=== PATIENT | female | born 1995 | race Caucasian/White ===

== ENCOUNTER 2024-09-06 15:53 | Outpatient (CLI) | payer SELFPAY ==
--- NOTE | 2024-09-06 09:46 | LES_PTH ---
PATIENT: MAHENDRA CASILLAS LOC: [facility] U#:[id number] AGE/SX: 29/F ROOM: RE09/06/[address]: Dr. Maverick Barr MD : 1995 BED: DIS: 09/06/2024 SPEC #: [id number] RECD: 09/06/24 15:40 STATUS: LUCRECIA MEÑO #: [id number] LOYDA: 09/06/24 09:[address]: Maverick Barr DEPT: SURGICAL PATHOLOGY RECD BY: Joshua Rodriguez Tissues: A - CYST B - Skin of lip, NOS C - Mandible, NOS Procedures: Surgery Specimen Level III Surgery Specimen Level IV HEADER OPERATION: Excision right earlobe cyst, right upper lip, left mandibular border PRE-OP DIAGNOSIS: Right earlobe cyst, right upper lip, left mandibular border TISSUE SUBMITTED: A- Right earlobe cyst, B- Right upper lip lesion, C- Left mandibular border lesion MICROSCOPIC DIAGNOSIS A. Earlobe, right, cyst (#1), excision: * Ruptured and inflamed epidermal inclusion cyst. B. Upper lip, right, lesion (#2), excision: * Intradermal melanocytic nevus, benign. C. Mandibular border, left, lesion (#3), excision: * Mildly dilated follicle with hyperkeratotic debris, consistent with keratosis pilaris. MICROSCOPIC DESCRIPTION Slides are reviewed. GROSS DESCRIPTION Received in 3 formalin containers labeled with the patient's name and date of . Designated as: A. #1 right earlobe cyst are 2 irregular rubbery tissue fragments surfaced by gonzalez skin, devoid of orientation, collectively measuring 1.2 x 1.0 x 0.7 cm. Sectioning reveals gonzalez, rubbery to fibrotic cut surfaces and gonzalez-white smooth cyst contents. Litigation Coordinator sections of both fragments are submitted in 1 cassette. B. #2 right upper lip lesion is a 0.4 x 0.3 cm gonzalez and granular wedge-shaped portion of apparent skin, excised to a maximum depth of 0.3 cm. The resection margin is inked black and the specimen is bisected (on the long axis). Entirely submitted in 1 cassette. C. #3 left mandibular border lesion is a 0.5 x 0.3 cm wedge-shaped portion of skin excised to a maximum depth of 0.2 cm. There is a 0.2 x 0.1 cm erythematous lesion centrally on the epidermal surface, 0.1 cm from the peripheral edge. The resection margin is inked green, the specimen is bisected and entirely submitted in 1 cassette. SC 09/07/2024 CPT:54372,23256q4
--- OUTSIDE RECORDS SUMMARY | 2024-09-06 17:52 | XMS RPT_ITS | CCD ---
Author Organization [facility] CliniSyut Care Team Providers Care Pen Tender Name Role Phone Meniru, Nicolas Unavailable Unavailable Meniru, Nicolas Unavailable Unavailable Meniru, [place] Unavailable Unavailable Meniru, [place] Unavailable Unavailable PEPE THOMAS Attending Unavailable PEPE THOMAS Primary Care Unavailable PEPE THOMAS Admitting Unavailable Preston BASS, Melinda Duckworth Primary Care Provider MELINDA JOHNSTON Primary Care Unavailable LEANN COOL Attending Unavailable Preston BASS, Melinda Duckworth Primary Care Provider Maverick Barr Attending Unavailable Dr. Maverick Barr MD Attending Provider Medications Current Medications Medication Drug Class(es) Dates Sig (Normalized) Sig (Original) cephalexin 500 mg oral capsule (2 sources) Cephalosporin Antibacterial Start: 04-13-2024 End: 04-18-2024 take 1 capsule by mouth four times daily cephALEXin (KEFLEX) 500 mg capsule Indications: Sebaceous cyst Take 1 capsule by mouth four times daily for 5 days. 20 capsule 04/13/2024 04/18/2024 Active Start: 07-09-2023 End: 07-16-2023 take 1 capsule by mouth three times daily cephALEXin (KEFLEX) 500 mg capsule Indications: Cutaneous cyst Take 1 capsule by mouth three times a day for 7 days. 21 capsule 0 07/09/2023 07/16/2023 Active Comment on above: Take 1 capsule by [facility] three times a day for 7 days. doxycycline hyclate 100 mg oral capsule (1 source) Tetracycline-clas s Drug Start: 09-06-2024 take 1 capsule by mouth twice daily Doxycycline Hyclate 100 mg capsule Active 100 mg PO TWICE A DAY 14 7 September 06, 2024 12:00am September 12, 2024 12:00am Bellamy (Nk) (1 source) Start: 07-19-2024 Bellamy (Nk) Active July 19, 2024 12:00am predniSONE 20 mg oral tablet (1 source) Start: 07-09-2023 End: 07-14-2023 take 1 tablet by mouth twice daily predniSONE (DELTASONE) 20 mg tablet Indications: Contact dermatitis, unspecified contact dermatitis type, unspecified trigger Take 1 tablet by mouth two times a day for 5 days. 10 tablet 0 07/09/2023 07/14/2023 Active Comment on above: Take 1 tablet by aren two times a day for 5 days. Completed/Discontinued Medications Medication Drug Class(es) Dates Sig (Normalized) Sig (Original) bacitracin 0.5 unt/mg topical ointment (1 source) Start: 07-09-2023 End: 07-09-2023 bacitracin 500 unit/gram 1 application topical ointment Start: 07-09-2023 End: 07-09-2023 bacitracin 500 unit/gram 1 a pplication topical ointment 10 ml lidocaine hydrochloride 10 mg/ml injection (1 source) Antiarrhythmic, Amide Local Anesthetic Start: 07-09-2023 End: 07-09-2023 lidocaine (PF) 10 mg/mL (1 %) 5 mg injection (XYLOCAINE) Start: 07-09-2023 End: 07-09-2023 lidocaine (PF) 10 mg/mL (1 % ) 5 mg injection (XYLOCAINE) Problems Active Problems Problem Classification Problem Date Documented Da te Episodic/Chronic Allergic reactions (2 sources) Contact dermatitis; Translations: [Unspecified contact dermatitis, unspecified cause] Onset: 07-09-2023 07-09-2023 Episodic Neoplasms of unspecified nature or uncertain behavior (4 sources) Neoplasm of uncertain behavior of skin; Translations: [Neoplasm of uncertain behavior of skin of face] Onset: 08-24-2024 07-19-2024 Episodic Comment on above: Right upper lip and left mandibular angle Other skin disorders (1 source) Cyst of skin; Translations: [Follicular cyst of the skin and subcutaneous tissue, unspecified] 07-09-2023 Episodic Other skin disorders (1 source) Follicular cyst of the skin and subcutaneous tissue, unspecified; Translations: [Cutaneous cyst] Onset: 07-09-2023 Episodic Other skin disorders (1 source) Sebaceous cyst of skin; Translations: [Sebaceous cyst] 04-13-2024 Episodic Other skin disorders (1 source) Epidermal cyst; Translations: [Epidermal cyst] Onset: 08-24-2024 Episodic Other skin disorders (3 sources) Ear lesion; Translations: [Epidermal cyst] 07-19-2024 Episodic Comment on above: Right earlobe Past or Other Problems Problem Classification Problem Date Documented Da te Episodic/Chronic Unclassified (1 source) Unknown / UNK(Unknown) Onset: 10-04-2016 Unclassified (1 source) INFERTILITY Onset: 10-04-2016 Results Test Name Value Interpretation Reference Range Facil ity Plastic Surgery Visit Report on 07-19-2024 Plastic Surgery Visit Report [facility] Plastic Reconstructive Surgery [address] [place] [address] OFFICE VISIT Date of Service: 07/19/24 MR#: [id number] Acct: [id number] Name: MAHENDRA SHARPE Rep #: [id number] : 1995 Provider: Dr. Maverick Barr MD Age/Sex: 29/F Location: [facility] Status: Signed Intake Vital Signs 3 07/19/24 09:21 Height 4 ft 11 in Weight: 190 lb BMI 38.3 BP 122/84 H Blood Pressure Location Rt brachial Position Sitting Respiration 18 Pulse 65 Pulse Source Monitor Temp 97 F L Pulse Oximetry (%) 97 Oxygen Delivery Method room air Intake Visit Reasons: SKIN CHECK Chief Complaint: lump in earlobe Is patient in pain?: No Allergies No Known Allergies Allergy (Unverified 07/19/24 09:20) Medications 3 ???Medication ???Instructions ???Recorded ???Confirmed ???Type NK 07/19/24 07/19/24 History Nurse's Note: pt here for lump in right earlobe as well as concerns of moles and skin tags HPI SKIN CHECK Details: Mahendra Sharpe is a delightful 29-year-old female who is otherwise healthy with no significant past medical history (not a smoker no diabetes) who presents for evaluation of 3 different problems. The first problem is a right earlobe cyst present for approximately 2 years which started to drain and became inflamed about a month ago requiring short course of oral antibiotics from an urgent care. The cyst is intermittently painful and drains behind the ear. Her other issue is to changing melanocytic lesions on the face, 1 on the right upper lip, and 1 on the left mandibular angle. She reports that they have been changing in color and size recently. No personal or family history of bleeding or clotting problems ROS General General: Yes good health; No fatigue, fever(s) or weight loss HENMT HENMT: No rhinitis, sore throat/mouth sore, nasal congestion, contacts or glaucoma Endo Endocrine: No thyroid disease, polydipsia, heat intolerance, cold intolerance, hepatitis or excessive urine Skin Skin: Yes changing moles; No Bleeding, bruising or suspicious lesion Musc Musculoskeletal: No joint pain, joint stiffness, muscle weakness, back pain, osteoarthritis or Muscle aches/ myalgia Neuro Neurological: No headache(s), No lightheadedness and No numbness Cardio Cardiovascular: No chest pain, pacemaker, fatigue or shortness of breat with exertion Psych Psychiatric: No depression, claustrophobia or anxiety Resp Respiratory: No spitting up, shortness of breath, sleep apnea, asthma, emphysema, TB, Cough or Smoker Gastro Gastrointestinal: No diarrhea, constipation, blood in stool, nausea, vomiting or abdominal bloating Exam Details Right ear lobe with 2 x 2 cm cyst with posterior sinus through the skin. Appears to have white/cystic material within the cyst wall. No induration or surrounding signs of infection Small melanocytic nevus with varying pigmentation and slightly irregular borders on the right upper keratinized lip. Small melanocytic nevus with varying pigmentation and slightly irregular borders in the left mandibular angle. Coding Level of Care Code Off vis,new,level 3 Diagnoses Epidermal cyst of ear L72.0 Neoplasm of uncertain behavior of skin of face D48.5 Assessment and Plan (No Qualifiers) Assessment and Plan (1) Epidermal cyst of ear: Status: Acute Comment: Right earlobe Plan: I talked to the patient about excision of the cyst including the cyst wall. Posterior earlobe incision. I talked to her about the risks, benefits, and alternatives to excision. We talked about earlobe distortion and recurrence of the mass. We talked about infection risk, as well as bleeding risk and scarring risk. She would like to proceed. (2) Neoplasm of uncertain behavior of skin of face: Status: Acute Comment: Right upper lip and left mandibular angle Plan: Warrants biopsy given history. Both lesions will be excised and closed/sent to pathology. I talked her about the risks of scarring, as well as sunscreen and sun protection and silicone scar tape. She understands that she is going to have scars after this, and there is a risk of hypertrophic scar keloiding or unacceptable scar requiring revision or treatments. She also understands the risks of surgery, including bleeding, infection, damage to surrounding structures, and recurrence of the lesion. Plan Plan for excision of these lesions under local in the general surgery office procedure room Patient happy with the plan 07/19/24 0950 Date Maverick Garduno Signature: Date (if applicable) CC: Normal [facility] 07-09-2023 [facility] Office Visit (UCUPNO ) MAHENDRA SHARPE ([id number]) 1995 F Date Time Provider Department 07/09/23 3:40 PM [place]ANN COOL [facility] your visit today, we recorded the following information about you: Temperature Pulse Respiration Blood pressure 98 degrees 64/minute 18/minute 112/76 Weight Last Period 83.9 kg 06/18/23 Leann Cool, [employer] 07/09/2023 3:47 PM Signed July 09, 2023 Subjective Chief Complaint: Derm Problem (Patient stated that red raised bump behind right earlobe area x 1 week. Lump just got more painful and grew in size in the past few days. /Very warm to the touch. /OTC: Benadryl /Red raised bumps on bilateral legs x 1 weeks. ) HPI: Mahendra Sharpe is a 28 year old female who presents today for raised bump to the back of right earlobe. Patient states that she noticed a lump to the back of her ear lobe for approximately 1 year. States over the course of the past week it has increased in size and is painful. Patient is unsure if it is reddened. Denies any trauma. Has never had her ears pierced. Denies any fever. States the area feels warm to the touch. Patient also states that she has itchy red raised bumps/rash to bilateral legs. States that the rash on her legs seems to be drying up. History reviewed. No pertinent past medical history. History reviewed. No pertinent surgical history. FAMILY HISTORY Problem Relation Age of Onset No Known Problems Mother No Known Problems Father Social History Tobacco Use Smoking status: Never Smokeless tobacco: Never Vaping Use Vaping Use: Never used Substance Use Topics Alcohol use: Yes Comment: rare Drug use: Never ALLERGIES No Known Allergies There is no immunization history on file for this patient. Current Medications: No prescriptions on file. Review of Systems Constitutional: Negative for chills, fever and malaise/fatigue. HENT: Positive for ear pain (earlobe). Negative for ear discharge, hearing loss, sinus pain and sore throat. Lump right earlobe Eyes: Negative for discharge and redness. Gastrointestinal: Negative for diarrhea and vomiting. Skin: Positive for rash. Objective BP 112/76 Pulse 64 Temp 98 Resp 18 Wt 185 lb (83.9kg) SpO2 100% LMP 06/18/2023 Physical Exam Vitals reviewed. Constitutional: General: She is not in acute distress. Appearance: Normal appearance. She is not ill-appearing, toxic-appearing or diaphoretic. HENT: Head: Normocephalic and atraumatic. Ears: Skin: General: Skin is warm and dry. Capillary Refill: Capillary refill takes less than 2 seconds. Neurological: Mental Status: She is alert and oriented to person, place, and time. Psychiatric: Mood and Affect: Mood normal. Behavior: Behavior normal. Thought Content: Thought content normal. Judgment: Judgment normal. UNIVERSAL PROTOCOL / SAFETY CHECKLIST Procedure to be Performed: Incision and Drainage right earlobe Sign In: A Moment of CARE was completed. Personnel directly involved with the procedure wore the appropriate PPE (Personal Protective Equipment). No special equipment needed. Patient/Surrogate Stated/Verified: PATIENT VERIFIED(optional for EMERGENT procedures): Patient name, Date of , Relevant allergies, and The intended procedure Time Out Communication: Intended patient and procedure match the source documents. Consent documented and matches the intended procedure. Relevant labs, photos, and/or imaging studies have been reviewed. Correct side/site marked and visible. Medications required for procedure verified. No fire risk assessment and interventions applicable. No implant(s) inserted. Sign Out: SIGN OUT (optional for EMERGENT procedures): No specimen collected. All instruments, equipment, possible retained foreign bodies accounted for. Post-procedure follow-up management communicated and Plan of Care Visit completed when applicable. Patient prepped and draped in sterile fashion. Cleansed patient's cyst with Hibiclens and sterile water. Patted dry with gauze. Injected half a cc of lidocaine 1% to area of concern. Upon removing needle scant amount of of white drainage expelled. Utilized #11 scalpel and made approximately 2 mm horizontal incision. Small amount of thick white sebaceous cyst consistency removed. Cleansed site again with Hibiclens and sterile water. Applied bacitracin and Band-Aid. Patient tolerated well. Patient maintained neuro vascular status pre and post incision and drainage. ASSESSMENT/PLAN: 1. Cutaneous cyst - ICD9: 706.2, ICD10: L72.9 (primary diagnosis) -Your primary care provider has a walk-in clinic Tuesday-Tuesday 8-4 for acute illnesses -Clean site twice per day with soap and water -Apply Band-aid to site for the next 24/48 hours -Watch for signs or symptoms of infection - call if any occur -Fever -Chills -Wound is re (more content not included)... [facility] CNCOon 10-18-2022 CNCO Letter Text [facility] CNPTracy 06-14-2022 [facility] Telephone (UP) MAHENDRA SHARPE ([id number]) 1995 F Date Time Provider Department 06/14/22 MELINDA JOHNSTON FMUPCN During your visit today, we recorded the following information about you: Sophia Mariooya 06/14/2022 12:53 PM Signed Patient's called and said patient has had severe left foot pain for couple of days and would like to know if you can work her in this week. Please advise. Thank you. Melinda Johnston MD 06/14/2022 1:52 PM Signed Can she use our walk in clinic? Sophia Tylor 06/14/2022 3:10 PM Signed Called patient's back and advised she can use walk in clinic. Allergies As of Date: 06/14/2022 (No Known Allergies) Date Reviewed: 01/08/2021 Reviewed by: Melinda Johnston MD - Fully Assessed Reason for Visit: Patient Question [3412] Cmt: Left foot pain Problem List As Of Date: 06/14/2022 (None) Encounter Status:Closed by SOPHIA SNIDER on 06/14/22 Normal [facility] OPERATIVE PROCEDURESon 01-31 OPERATIVE PROCEDURES [facility] OPERATIVE REPORT NAME ACCOUNT SEX AGE ADMIT DISCHARGE PT MED. RECORD# NUMBER DATE TYPE MAHENDRA SHARPE [id number] 01/30/21 01/30/21 2 [id number] ROOM: [facility] DATE OF : 1995 DICTATING PHYSICIAN: Pepe Thomas DATE OF SURGERY: January 30, 2021 SURGEON: Pepe Thomas MD JIG BORING MACHINE SET UP OPERATOR: ANESTHESIOLOGIST: Cristofer Crump MD ANESTHETIC: PREOPERATIVE DIAGNOSIS: POSTOPERATIVE DIAGNOSIS: Gastroesophageal reflux disease, cough, eructation, hiatal hernia, and gastritis. OPERATION PERFORMED: EGD. COMPLICATIONS: ESTIMATED BLOOD LOSS: None. SPECIMEN: None. DISPOSITION: Stable, to recovery. INDICATIONS: Mahendra Sharpe is a 25-year-old lady who has had some symptoms of GERD as well as a cough and increased eructation. She was concerned about possible malignancy. DESCRIPTION OF OPERATION: After informed consent, she was brought to endoscopy. The patient was placed on a padded gurney in the left lateral decubitus position with adequate padding of pressure points and time-out verification done. She was given sedation per Anesthesia. A bite block was placed, and the oropharynx was lightly anesthetized with 2% viscous lidocaine. The Olympus [id number]-[id number] flexible endoscope was passed through the bite block and oropharynx into the esophagus and carefully advanced, protecting the surrounding mucosa. The scope was advanced through the proximal esophagus, which was unremarkable. In the distal esophagus, she Page 1 of 2 MAHENDRA SHARPE Operative Report MAHENDRA SHARPE : 1995 has a small hiatal hernia and mild erythema but no ulceration. The scope was passed beyond the GE junction, retroflexed, and the fundus and GE junction viewed from below. The scope was then straightened out and advanced into the distal gastric body, down into the second portion of the duodenum and then withdrawn with circumferential visualization, irrigation and suctioning in a [id number] movement. The bulb, pylorus and antrum were carefully viewed. The rest of the gastric body was viewed. Fluid and mucus were irrigated and suctioned. The scope was then withdrawn with decompression. There was no mass, no polypoid structure, no stricture, and no angiodysplasia. She does have some scattered erythema consistent with gastritis, and she also has a small hiatal hernia. There was no mass, no exposed vessel, and no angiodysplasia. The patient tolerated the procedure well. The scope was withdrawn and then the case was discussed with the patient and spouse when she was more awake in child care sitter. Dictated By: Pepe Thomas MD 01/30/21 09:45 JOB #: [id number] Transcribed By: shaheed 01/30/21 14:40 Electronically signed by: E-Sign Dr. Pepe Thomas MD 01/31/21 10:19 Page 2 of 2 MAHENDRA SHARPE Operative Report Normal [facility] URINEon 01-30-2021 Beta HCG ( test) Ql (U) Negative Normal NEGATIVE [facility] Comment on above: Performed By: #### 2 [id number] #### [place] [address] EXTERNAL QC DONE? YES Normal [facility] Comment on above: Performed By: #### 2 [id number] #### [place] [id number] INTERNAL QC PASS Normal [facility] Comment on above: Performed By: #### 2 [id number] #### [facility],[address] [place] [address] H&Hon 04-19-2019 Hematocrit (Bld) [Volume fraction] 37.6 % Normal 36.0-48.0 [facility] Comment on above: Performed By: #### L 300.0500 #### [facility] [address] [place] [address] Hemoglobin (Bld) [Mass/Vol] 12.5 g/dL Normal 12.0-16.0 [facility] Comment on above: Performed By: #### L 300.0500 #### [facility] [address] [place] [address] HISTORY AND PHYSICALon 04-19 [place] [address] HEALTH INFORMATION MANAGEMENT HISTORY AND PHYSICAL Patient: MAHENDRA SHARPE JONATHAN OSULLIVAN M.D. [id number] 24 F Status: DIS IN 3368- Date of Admission: 04/18/19 HISTORY OF PRESENT ILLNESS: Mahendra is a 24-year-old patient of mine, 2, para 1. She is currently at 39 weeks and 5 days, presented to Labor and Delivery with complaint of contraction and question of rupture of membrane. AmniSure was positive and she was initially regina on presentation. However, her contraction has started to space out. She is about 2 to 3 cm and has stayed on that, was elected then to go ahead and augment her. She has ruptured with contractions spacing out at this point. Her past history was significant for one vaginal delivery. Baby was under 7 pounds then and other than that nothing further. REVIEW OF SYSTEMS: Other than the contraction and leakage of fluid, she denied any other complaint. No chest pain. No shortness of breath. No dysuria and no complaint of bleeding. ALLERGIES: She denied any known allergies. FAMILY HISTORY: Significant for family member in general with multiple gestations in the family. Other than that nothing further. SOCIAL HISTORY: Socially, no history of cigarette, alcohol, or recreational drug use and past history includes the fact that she has been before with one vaginal delivery and she has had a D&C in the past other than that nothing further. PHYSICAL EXAMINATION: GENERAL: On evaluation, she is a well-nourished, well-developed patient. This patient weighs about 191 pounds with BMI of 28.5. She is short in stature. HEENT: Normal. NECK: Supple, nontender. CHEST: Clear to auscultation. HEART: Regular rate and rhythm. ABDOMEN: By clinically approach, this baby is around between 7 and 8 pounds. Other than that no other abnormality. No CVA tenderness. Cervical check is about 1 to 2 with positive AmniSure. Clinical pelvimetry, she seems to have adequate pelvic for vaginal delivery and had delivered a baby in the past that was just under 7 pounds, but without any problem. External genitalia, urethra and vagina was normal. NEUROLOGIC: Cranial nerves 2 to 12 appear grossly intact and again this patient we felt that is about 2 cm, close to 0 station, and about 60 to 70% effaced, and the cervix being soft in consistency, and anterior in position. Other than that nothing further. IMPRESSION: At this point is term , in early labor, grossly ruptured. Will augment with Pitocin as labor contraction is beginning to space out at this point. Report#: Dict ID [id number] / Int ID [id number] 04/20/19 1213 JONATHAN CARSON M.D. cc: JONATHAN CARSON M.D. << Signature on File>> Reported By: JONATHAN CARSON M.D. Signed By: JONATHAN CARSON M.D. Tests performed at: [address] [address] Normal [facility] AMNISUREon 04-18-2019 AMNISURE Positive Normal NEGATIVE [facility] Comment on above: Performed By: #### B 500.0845 #### [facility] [address] [place] [address] CBCon 04-18-2019 Basophils (Bld) [#/Vol] 0.00 x10(3) Normal 0.00-0.10 [facility] Comment on above: Performed By: #### L 300.0500 #### [facility] [address] [place] [address] Basophils/100 WBC (Bld) 0.6 % Normal 0.0-1.0 [facility] Comment on above: Performed By: #### L 300.0500 #### [facility] [address] [place] [address] Eosinophils (Bld) [#/Vol] 0.10 x10(3) Normal 0.00-0.54 [facility] Comment on above: Performed By: #### L 300.0500 #### [facility] [address] [place] [address] Eosinophils/100 WBC (Bld) 0.8 % Normal 0.5-4.9 [facility] Comment on above: Performed By: #### L 300.0500 #### [facility] [address] [place] [address] Erythrocyte distribution width (RBC) [Ratio] 13.4 % Normal 12.5-15.7 [facility] Comment on above: Performed By: #### L 300.0500 #### [facility] [address] [place] [address] Hematocrit (Bld) [Volume fraction] 37.4 % Normal 36.0-48.0 [facility] Comment on above: Performed By: #### L 300.0500 #### [facility] [address] [place] [address] Hemoglobin (Bld) [Mass/Vol] 12.4 g/dL Normal 12.0-16.0 [facility] Comment on above: Performed By: #### L 300.0500 #### [facility] [address] [place] [address] Lymphocytes (Bld) [#/Vol] 1.50 x10(3) Normal 1.00-3.50 [facility] Comment on above: Performed By: #### L 300.0500 #### [facility] [address] [place] [address] Lymphocytes/100 WBC (Bld) 20.5 % Normal 16.0-48.0 [facility] Comment on above: Performed By: #### L 300.0500 #### [facility] [address] [place] [address] MCH (RBC) [Entitic mass] 29.8 pg Normal 28.5-32.9 [facility] Comment on above: Performed By: #### L 300.0500 #### [facility] [address] [place] [address] MCHC (RBC) [Mass/Vol] 33.3 g/dL Normal 33.0-36.0 [facility] Comment on above: Performed By: #### L 300.0500 #### [facility] [address] [place] [address] MCV (RBC) [Entitic vol] 89.4 fL Normal 80.0-99.0 [facility] Comment on above: Performed By: #### L 300.0500 #### [facility] [address] [place] [address] Monocytes (Bld) [#/Vol] 0.60 x10(3) Normal 0.30-0.80 [facility] Comment on above: Performed By: #### L 300.0500 #### ML [facility] [address] [place] [address] 66283 Monocytes/100 WBC (Bld) 8.3 % Normal 4.3-11.2 [facility] Comment on above: Performed By: #### L 300.0500 #### ML [facility] [address] [place] [address] 50052 Neutrophils (Bld) [#/Vol] 5.00 x10(3) Normal 1.40-6.50 [facility] Comment on above: Performed By: #### L 300.0500 #### [facility] [address] [place] [address] 92478 Neutrophils/100 WBC (Bld) 69.8 % Normal 45.0-73.0 [facility] Comment on above: Performed By: #### L 300.0500 #### [facility] [address] [place] [address] 69188 Platelet mean volume (Bld) [Entitic vol] 8.4 fL Normal 7.5-9.5 [facility] Comment on above: Performed By: #### L 300.0500 #### ML - LABORATORY [address] [place] [address] 93641 Platelets (Bld) [#/Vol] 186 X10(3) Normal 150-450 [facility] Comment on above: Performed By: #### L 300.0500 #### ML - LAB[facility]ATORY [address] [place] [address] 11668 RBC (Bld) [#/Vol] 4.18 x10(6) Normal 3.30-5.00 [facility] Comment on above: Performed By: #### L 300.0500 #### ML - [facility]AT[facility] [address] [place] [address] 31265 WBC (Bld) [#/Vol] 7.1 x10(3) Normal 4.5-10.0 [facility] Comment on above: Performed By: #### L 300.0500 #### ML - [facility]AT[facility] [address] [place] [address] 39312 OPERATIVE REPORTon 0 [place] [address] HEALTH INFORMATION MANAGEMENT OPERATIVE REPORT Patient: MAHENDRA SHARPE JONATHAN CARSON M.D. [id number] [age] F Status: DIS IN 3368- DATE OF SURGERY: 04/18/2019 SURGEON: Jonathan Carson MD PREDELIVERY DIAGNOSIS: 39 weeks and 5 days , rupture of membrane in labor POSTOPERATIVE DIAGNOSIS: 39 weeks and 5 days , rupture of membrane in labor. PROCEDURE: Augmentation of labor with spontaneous vaginal delivery, spontaneous delivery of placenta. Baby and mom are doing well. ESTIMATED BLOOD LOSS: About 100 mL. DESCRIPTION OF PROCEDURE: Delivery was done by Dr. Carson. All this was done under epidural, although like the epidural was not working. Following delivery, she was evaluated and perineum and vaginal mucosa appeared to be intact. Report#: Dict ID [id number] / Int ID [id number] cc: Jonathan Carson MD 04/20/19 1213 JONATHAN CARSON M.D. cc: JONATHAN CARSON M.D. << Signature on File>> Reported By: JONATHAN CARSON M.D. Signed By: JONATHAN CARSON M.D. Tests performed at: [place] [address] [facility] TYPE AND SCREENon 04-18-2019 AB SCRN Negative [facility] Comment on above: Performed By: #### L 300.0500 #### ML - [facility]AT[facility] [address] [place] [address] 66804 BLD TYPE Positive [facility] Comment on above: Performed By: #### L 300.0500 #### ML - [facility] [address] [place] [address] 88179 URINALYSISon 04-18-2019 Bilirubin Ql (U) Negative Normal NEGATIVE [facility] Comment on above: Performed By: #### L 300.0500 #### ML - [facility] [address] [place] [address] 48416 Color (U) YELLOW Normal YELLOW [facility] Comment on above: Performed By: #### L 300.0500 #### ML - [facility] [address] [place] [address] 09691 Glucose Ql (U) Negative Normal NEGATIVE [facility] Comment on above: Performed By: #### L 300.0500 #### [facility] [address] [place] [address] 63582 Hemoglobin Ql (U) LARGE Normal NEGATIVE [facility] Comment on above: Performed By: #### L 300.0500 #### ML - [facility] [address] [place] [address] 17685 Leukocyte esterase Test strip Ql (U) Negative Normal NEGATIVE [facility] Comment on above: Performed By: #### L 300.0500 #### [facility] [address] [place] [address] 72699 Nitrite Ql (U) Negative Normal NEGATIVE [facility] Comment on above: Performed By: #### L 300.0500 #### [facility] [address] [place] [address] 84513 pH (U) 7.5 [pH] Normal 5.0-8.0 [facility] Comment on above: Performed By: #### L 300.0500 #### [facility] [address] [place] [address] 86664 Protein Ql (U) Negative Normal NEGATIVE [facility] Comment on above: Performed By: #### L 300.0500 #### [facility] [address] [place] [address] 30838 URINE APPEARANC CLEAR Normal CLEAR [facility] Comment on above: Performed By: #### L 300.0500 #### [facility] [address] [place] [address] 25193 URINE KETONE Negative Normal NEGATIVE [facility] Comment on above: Performed By: #### L 300.0500 #### [facility] [address] [place] [address] 41997 URINE SPECIFIC 1.010 Normal 1.001-1.035 [facility] Comment on above: Performed By: #### L 300.0500 #### [facility] [address] [place] [address] 67745 URINE UROBILINO 0.2 EU/DL Normal 0.2-1.0 [facility] Comment on above: Performed By: #### L 300.0500 #### ML - [facility] [address] [place] [address] 95889 US PREG >14WKS SINGLE OR FIR STon 04-10-2019 US PREG >14WKS SINGLE OR FIRST [address] [address] Name: MAHENDRA SHARPE Phys: JONATHAN CARSON M.D. : [birth year] Age: 24 Sex: F Acct: [id number] Loc: RAD US Exam Date: 04/10/19 Status: REG CLI Radiology No.: [id number] Unit Number: [id number] Exam # Type/Exam [id number] US / US PREG >14WKS SINGLE OR FIRST ULTRASOUND OB GREATER THAN 14 WEEKS COMPARISON: 11/27/2018 Indication ======== GROWTH, ANATOMY. Method ====== Transabdominal ultrasound examination. ========= Nguyen . Number of fetuses: 1. Dating ====== Date Details Gest. age ISAI External assessment 37 w 0 d 05/01/2019 U/S 04/10/2019 based upon AC, BPD, Femur, HC 38 w 0 d 04/24/2019 Assigned dating Dating performed on 04/10/2019, based on ultrasound (AC, BPD, Femur, HC) 38 w 0 d 04/24/2019 General Evaluation Cardiac activity: present. FHR 131 bpm. movements: visualized. Presentation: cephalic. Placenta: fundal. Umbilical cord: 3 vessel cord. Amniotic fluid: Amount of AF: normal amount. MVP 4.2 cm. KATHY 12.0 cm. Q1 4.2 cm, Q2 1.5 cm, Q3 2.5 cm, Q4 3.8 cm. Biometry Main Biometry: BPD 92.1 mm 57% 37w 3d Hadlock OFD 114.0 mm 68% 39w 0d Patrick HC 330.9 mm 23% 37w 5d Hadlock AC 343.6 mm 75% 38w 2d Hadlock Femur 76.1 mm 75% 38w 6d Hadlock Weight Calculation: EFW 3,436 g 68% 39w 0d Hadlock EFW (lb,oz) 7 lb 9 oz Calculated by Hadlock ([id number]-FL) Proportionality Ratios: Cephalic index 80.75 HC / AC 0.96 FL / BPD 82.61 FL / HC 22.99 FL / AC 22.14 Amniotic Fluid / FHR: AF MVP 4.2 cm KATHY 12.0 cm FHR 131 bpm Anatomy The following structures could not be adequately visualized: Head / Neck Lateral ventricles. Cerebellum. Cisterna magna. Face Nose. The following structures were visualized: Face Lips. Heart / Thorax 4-chamber view. Abdomen Cord insertion. Stomach. Kidneys. Bladder. Spine / Skelet. Cervical spine. Thoracic spine. Lumbar spine. Sacral spine. Extremities Arms. Legs. Maternal Structures Right Ovary Visualized. Size 3.4 cm x 3.8 cm x 4.6 cm. Mean 3.9 cm. Vol 30.4 ml. Left Ovary Visualized. Size 4.3 cm x 4.3 cm x 2.3 cm. Mean 3.6 cm. Vol 22.2 ml. IMPRESSION: Single live intrauterine in cephalic presentation measuring 38 weeks 0 days based on biometry measurements on today's exam. The lateral ventricles, cerebellum, cisterna magna, nose were not adequately assessed on today's exam due to gestational age. The remaining visualized structures appear normal. Electronically signed by: Mony Potter MD 04/10/2019 2:02 PM PLASTIC MOULD MAKER < > Reported By: MONY POTTER M.D. Signed In PowerScribe By: MONY POTTER M.D. << Signature on File>> Reported By: MONY POTTER M.D. Signed By: MONY POTTER M.D. Tests performed at: [place] [address] [facility] Chlamyda/GC DNAon 04-06-2019 Chlamydia trach Negative Normal Negative [facility] Comment on above: Performed By: #### L 801.6630 #### [place] [address] Neisseria Gonor Negative Normal Negative [facility] Comment on above: Result Comment: Perf ormed at: =G - [facility] [address] [id number] Litigation Manager: Bailee Coon MD, Phone: [phone] Performed By: #### L 801.6630 #### [place] [address] RPRon 04-05-2019 Reagin Ab RPR Ql (S) NON-REACTIVE Normal NonReactive [facility] Comment on above: Performed By: #### B 500.0845 #### [facility] [address] [place] [address] GRP B SCNon 04-04-2019 GRP B SCN ORGANISM 1: NO GROUP B BETA STREP ISOLATED Normal [facility] Comment on above: Performed By: #### M 150.0200 #### [facility] [address] [place] [address] 84575 CBCon 04-03-2019 Basophils (Bld) [#/Vol] 0.00 x10(3) Normal 0.00-0.10 [facility] Comment on above: Performed By: #### B 500.0845 #### ML [facility] [address] [place] [address] 67939 Basophils/100 WBC (Bld) 0.3 % Normal 0.0-1.0 [facility] Comment on above: Performed By: #### B 500.0845 #### [facility] [address] [place] [address] 35282 Eosinophils (Bld) [#/Vol] 0.10 x10(3) Normal 0.00-0.54 [facility] Comment on above: Performed By: #### B 500.0845 #### ML [facility] [address] [place] [address] 32172 Eosinophils/100 WBC (Bld) 0.8 % Normal 0.5-4.9 [facility] Comment on above: Performed By: #### B 500.0845 #### ML [facility] [address] [place] [address] 59994 Erythrocyte distribution width (RBC) [Ratio] 13.4 % Normal 12.5-15.7 [facility] Comment on above: Performed By: #### B 500.0845 #### ML [facility] [address] [place] [address] 35612 Hematocrit (Bld) [Volume fraction] 36.2 % Normal 36.0-48.0 [facility] Comment on above: Performed By: #### B 500.0845 #### [facility] [address] [place] [address] 04520 Hemoglobin (Bld) [Mass/Vol] 12.0 g/dL Normal 12.0-16.0 [facility] Comment on above: Performed By: #### B 500.0845 #### ML - [facility] [address] [place] [address] 80338 Lymphocytes (Bld) [#/Vol] 1.20 x10(3) Normal 1.00-3.50 [facility] Comment on above: Performed By: #### B 500.0845 #### ML [facility] [address] [place] [address] 20849 Lymphocytes/100 WBC (Bld) 14.4 % Low 16.0-48.0 [facility] Comment on above: Performed By: #### B 500.0845 #### ML [facility] [address] [place] [address] 32818 MCH (RBC) [Entitic mass] 29.8 pg Normal 28.5-32.9 [facility] Comment on above: Performed By: #### B 500.0845 #### [facility] [address] [place] [address] 34007 MCHC (RBC) [Mass/Vol] 33.1 g/dL Normal 33.0-36.0 [facility] Comment on above: Performed By: #### B 500.0845 #### ML [facility] [address] [place] [address] 31397 MCV (RBC) [Entitic vol] 90.0 fL Normal 80.0-99.0 [facility] Comment on above: Performed By: #### B 500.0845 #### [facility] [address] [place] [address] 31049 Monocytes (Bld) [#/Vol] 0.60 x10(3) Normal 0.30-0.80 [facility] Comment on above: Performed By: #### B 500.0845 #### ML [facility] [address] [place] [address] 29615 Monocytes/100 WBC (Bld) 7.8 % Normal 4.3-11.2 [facility] Comment on above: Performed By: #### B 500.0845 #### ML [facility] [address] [place] [address] 47133 Neutrophils (Bld) [#/Vol] 6.20 x10(3) Normal 1.40-6.50 [facility] Comment on above: Performed By: #### B 500.0845 #### [facility] [address] [place] [address] 11810 Neutrophils/100 WBC (Bld) 76.7 % High 45.0-73.0 [facility] Comment on above: Performed By: #### B 500.0845 #### ML [facility] [address] [place] [address] 06703 Platelet mean volume (Bld) [Entitic vol] 8.5 fL Normal 7.5-9.5 [facility] Comment on above: Performed By: #### B 500.0845 #### ML [facility] [address] [place] [address] 00838 Platelets (Bld) [#/Vol] 192 X10(3) Normal 150-450 [facility] Comment on above: Performed By: #### B 500.0845 #### ML [facility] [address] [place] [address] 83220 RBC (Bld) [#/Vol] 4.02 x10(6) Normal 3.30-5.00 [facility] Comment on above: Performed By: #### B 500.0845 #### ML [facility] [address] [place] [address] 04765 WBC (Bld) [#/Vol] 8.1 x10(3) Normal 4.5-10.0 [facility] Comment on above: Performed By: #### B 500.0845 #### ML [facility] [address] [place] [address] 81236 URINALYSISon 03-20-2019 Bilirubin Ql (U) Negative Normal NEGATIVE [facility] Comment on above: Performed By: #### B 500.0845 #### ML - [facility] [address] [place] [address] 15230 Color (U) YELLOW Normal YELLOW [facility] Comment on above: Performed By: #### B 500.0845 #### ML [facility] [address] [place] [address] 47081 Glucose Ql (U) Negative Normal NEGATIVE [facility] Comment on above: Performed By: #### B 500.0845 #### ML - [facility] [address] [place] [address] 89158 Hemoglobin Ql (U) Negative Normal NEGATIVE [facility] Comment on above: Performed By: #### B 500.0845 #### ML - [facility] [address] [place] [address] 25074 Leukocyte esterase Test strip Ql (U) Negative Normal NEGATIVE [facility] Comment on above: Performed By: #### B 500.0845 #### ML - [facility] [address] [place] [address] 52401 Nitrite Ql (U) Negative Normal NEGATIVE [facility] Comment on above: Performed By: #### B 500.0845 #### [facility] [address] [place] [address] 12529 pH (U) 7.0 [pH] Normal 5.0-8.0 [facility] Comment on above: Performed By: #### B 500.0845 #### [facility] [address] [place] [address] 52813 Protein Ql (U) Negative Normal NEGATIVE [facility] Comment on above: Performed By: #### B 500.0845 #### [facility] [address] [place] [address] 58600 URINE APPEARANC CLEAR Normal CLEAR [facility] Comment on above: Performed By: #### B 500.0845 #### [facility] [address] [place] [address] 32725 URINE KETONE 15 MG/DL Normal NEGATIVE [facility] Comment on above: Performed By: #### B 500.0845 #### ML [facility] [address] [place] [address] 78604 URINE SPECIFIC 1.010 Normal 1.001-1.035 [facility] Comment on above: Performed By: #### B 500.0845 #### [facility] [address] [place] [address] 96249 URINE UROBILINO 0.2 EU/DL Normal 0.2-1.0 [facility] Comment on above: Performed By: #### B 500.0845 #### ML [facility] [address] [place] [address] [place] [address] RPRon 03-13-2019 Reagin Ab RPR Ql (S) NON-REACTIVE Normal NonReactive [facility] Comment on above: Performed By: #### B 500.0845 #### ML - [facility] [address] [place] [address] 45540 H&Hon 03-12-2019 Hematocrit (Bld) [Volume fraction] 33.9 % Low 36.0-48.0 [facility] Comment on above: Performed By: #### B 500.0845 #### ML - [facility] [address] [place] [address] 07051 Hemoglobin (Bld) [Mass/Vol] 11.5 g/dL Low 12.0-16.0 [facility] Comment on above: Performed By: #### B 500.0845 #### ML - [facility] [address] [place] [address] 57082 1HR GLUCOSEon 01-23-2019 Glucose [Mass/Vol] 102 mg/dL Normal [facility] Comment on above: Order Comment: 1HR G LUCOSE TRINIDAD 1H GLU 1HR GLUCOSE from 1105:[id number]. Result Comment: DIAB ETES MELLITUS IS INDICATED IN NON- ADULTS WHEN THE 2HR GLUCOSE IS GREATER THAN OR EQUAL TO 200 mg/dL OR THE FASTING GLUCOSE IS GREATER THAN OR EQUAL TO 126 mg/dL. GESTATIONAL DIABETES IS INDICATED WHEN TWO OR MORE OF THE FOLLOWING GLUCOSE CONCENTRATIONS ARE MET OR EXCEEDED: FASTING GLUCOSE >=95 mg/dL 1HR GLUCOSE >=180 mg/dL 2HR GLUCOSE >=155 mg/dL 3HR GLUCOSE >=140 mg/dL Performed By: #### B 500.0845 #### ML - [facility] [address] [place] [address] 64544 ED REPORTon 01-17-2019 [place] [address] HEALTH INFORMATION MANAGEMENT EMERGENCY DEPARTMENT REPORT Patient: MAHENDRA SHARPE ANDREA C NP-C as dictated by DANYELLE CASTILLO [id number] [age] F Status: DEP ER ED Date of Service: 01/16/19 DICTATED FOR: Dr. Wilkes. CHIEF COMPLAINT: Right foot pain. HISTORY OF PRESENT ILLNESS: The patient states she was walking down a couple of steps, had her 1-year-old in the left arm and felt a pop in her right foot, causing pain. She did fall, she said on an outstretched arm, but she is not complaining of wrist pain at all. The only pain she is having is this right foot and it is at the 5th metatarsal area. She said she has had a very difficult time putting any weight on it since then. She is 26 weeks' . Denies any injury to her abdomen. Denies any other injuries at all. No head injury. No neck pain. No back pain. Denies any numbness or tingling to the foot. REVIEW OF SYSTEMS: A 10-point review of systems is negative except for listed in the HPI. PAST MEDICAL HISTORY: None. PAST SURGICAL HISTORY: None. SOCIAL HISTORY: She is . Denies drug, alcohol, or tobacco use. ALLERGIES: No known drug allergies. MEDICATIONS: Daily medicines include vitamins. PHYSICAL EXAMINATION: VITAL SIGNS: The patient's blood pressure is 114/75, temperature 98.5, pulse 83, respirations 18, SpO2 is 98% on room air. She rates her pain as 7/10 with ambulation. GENERAL: She is a pleasant 23-year-old female, in no acute distress, nontoxic appearing. HEENT: Head is atraumatic, normocephalic. NECK: Supple, nontender. SKIN: Color is pink. She is warm and dry. Cap refill less than 2 seconds including to this right foot. EXTREMITIES: There are no abrasions or open areas to the foot. She has good cap refill sensation and pulses to the foot. She does have some swelling over the lateral aspect of the foot and tenderness certainly to that 5th metatarsal area. She does not have any ankle pain with palpation. She has good flexion and extension and rotation of the ankle. No tib- fib pain. No other pain to the other extremities with palpation. LUNGS: Breath sounds are clear. Respirations are easy. CARDIAC: She has regular rate and rhythm. NEUROLOGIC: She is alert and oriented x3. EMERGENCY DEPARTMENT COURSE: We did do an x-ray of the foot, which does show a fracture through the base of the 5th metatarsal. The patient was placed in an Ortho-Glass posterior short-leg splint by myself. She had good cap refill and sensation prior to and after application of the splint. We are going to give her crutches. She is to be nonweightbearing until she follows up with either [facility] or Foot and Ankle Specialist who is Dr. Hudson Thomas that is on. She is encouraged to ice it, elevate it, take Tylenol or ibuprofen for pain, and return here for any worsening condition. Report#: Dict ID [id number] / Int ID [id number] 01/17/19 1350 MANJEET CALVERT LIFE MANAGEMENT TEACHER-C cc: MANJEET CALVERT LIFE MANAGEMENT TEACHER-C << Signature on File>> Reported By: MANJEET CALVERT Signed By: MANJEET CALVERT Tests performed at: [address] [address] Normal [facility] EMERGENCY DEPARTMENT REPORTo n 01-17-2019 EMERGENCY [place] [address] HEALTH INFORMATION MANAGEMENT EMERGENCY DEPARTMENT REPORT Patient: MAHENDRA SHARPE STAS,ELIAS Zepeda D.O. [id number] [age] F Status: DEP ER ED Date of Service: 01/16/19 CHIEF COMPLAINT: Foot pain. HISTORY OF CHIEF COMPLAINT: This is a 23-year-old female. She is about 28 weeks . She was going down steps and she slipped and fell. She landed on her right outstretched arm and kind of on her right side. She did not hit her abdomen. She denies any abdominal pain. No vaginal bleeding or cramping. She says that she did feel the baby move. The patient has no pain in her arm, but she said the reason she fell on the first place is because she stepped down. She was holding her 1-year-old in her left arm and when she stepped down she felt a pop on the lateral side of her right foot. She said that again no belly pain, did not hit her abdomen, used her arm to brace herself. She states that she is having no cramping. No vaginal bleeding. No discharge, just pain on the lateral side of her right foot. No arm pain with this. Did not hit her head. No loss of consciousness. The patient was seen by nurse practitioner. I saw and assessed her as well. PHYSICAL EXAMINATION: GENERAL: She is awake, alert, active, nontoxic in appearance. Appears to be well hydrated, well nourished. HEENT: Benign. Trachea midline. Pupils are equal and reactive. HEART: Regular rate and rhythm. LUNGS: Clear bilaterally. ABDOMEN: Soft, nontender to palpation anywhere in the abdomen. The uterus is soft. I palpated the abdomen, you could feel the baby kicking. There are no signs of any abdominal trauma anywhere. No abdominal contractions. The patient does have good heart tones. SKIN: Without rashes EXTREMITIES: Without edema or cyanosis. Negative Homans. She does have tenderness over the lateral side of her right foot over the 5th metatarsal head. No gross deformity of the foot. Not tender over the ankle. Negative machine deicer element winder the ankle. Neurovascularly intact in the legs. The patient had no pain with range of motion of the upper extremities. IMAGING: The patient's x-rays of the foot show fracture through the 5th metatarsal head. IMPRESSION: 1. Fall. 2. Fracture of 5th metatarsal head, right foot. At this time, we put posterior splint, crutches, have her nonweightbearing, have her follow up as outpatient with Orthopedics. Ortho or Podiatry will stay off the foot in the meantime , she will follow up as an outpatient. Again, there is no evidence of any abdominal trauma here, so I do not think any further abdominal studies would be warranted. She is going to be discharged in stable condition. Report#: Dict ID [id number] / Int ID [id number] 01/18/19 1502 ELIAS WILKES D.O. cc: ELIAS WILKES D.O. << Signature on File>> Reported By: ELIAS WILKES D.O. Signed By: ELIAS WILKES D.O. Tests performed at: [address] [address] Normal [facility] FOOT 3 VIEWSon 01-16-2019 FOOT [address] [address] Name: MAHENDRA SHARPE Phys: MANJEET CALVERT Brunilda LIFE MANAGEMENT TEACHER-C : [birth year] Age: 23 Sex: F Acct: [id number] Loc: ED Exam Date: 01/16/19 Status: REG ER Radiology No.: [id number] Unit Number: [id number] Exam # Type/Exam [id number] RAD / FOOT 3 VIEWS RT XR FOOT 3 VIEWS RIGHT CLINICAL STATEMENT: Pain following injury on stairs. COMPARISON: None FINDINGS: AP, oblique, and lateral views obtained. There is a comminuted fracture with intra-articular extension involving the base of the fifth metatarsal bone. Abutting soft tissue swelling is appreciated. Remaining articulations of Lisfranc's joint appears smoothly marginated. No subluxation is seen. IMPRESSION: Acute comminuted intra-articular fracture involving the base fifth metatarsal right foot. Electronically signed by: Otoniel Slade DO 01/16/2019 1:52 PM CDT < > Reported By: OTONIEL SLADE D.O. Signed In PowerScribe By: OTONIEL SLADE D.O. << Signature on File>> Reported By: OTONIEL SLADE D.O. Signed By: OTONIEL SLADE D.O. Tests performed at: [address] [address] Normal [facility] AFP TETRA PROFIon 11-29-2018 AFP Mom Value 0.95 Normal . [facility] Comment on above: Performed By: #### L 800.8249 #### [place] [address] AFP Value (EIA) 34.5 ng/mL Normal . [facility] Comment on above: Performed By: #### L 800.8249 #### [place] [address] Comments: Normal [facility] Comment on above: Result Comment: Rangel Olson, Ph.D., [facility] [employer] Superintendent References: Available Upon Request. Multiples Of Median Cutoffs Abbreviation Definitions For AFP Elevations IDD- Insulin Dep Diabetes Nguyen 2.5 Black 2.8 OSBR- Open Spina Bifida IDD 2.0 Twins 4.5 Risk DSR Cutoff 1:270 DSR- Down Syndrome Risk T18 Cutoff 1:100 T18- Trisomy 18 Down Syndrome and Trisomy 18 screening are considered Investigational For further inquiries contact [facility] at [phone]. Performed at: - [facility] [address] [place], [place] [id number] Litigation Manager: Jennifer Lopez MD, Phone: [phone] Performed By: #### L .8249 #### [place] [address] GIGI MOM VALUE 0.51 Normal . [facility] Comment on above: Performed By: #### L .8249 #### [place] [address] GIGI VALUE (EIA) 79.63 pg/mL Normal . [facility] Comment on above: Performed By: #### L .8249 #### [place] [address] DSR (By Age) 1I 1026 Normal . [facility] Comment on above: Performed By: #### L .8249 #### [place] [address] DSR (Second Tri [address] Normal . [facility] Comment on above: Performed By: #### L .8249 #### [place] [address] Gestat. Age Bas ISAI Normal . [facility] Comment on above: Result Comment: 04/21 Performed By: #### L 800.8249 #### [place] [address] Gestational Age 17.6 WEEKS Normal . [facility] Comment on above: Performed By: #### L .8249 #### [place] [address] hCG Mom 1.24 Normal . [facility] Comment on above: Performed By: #### L .8249 #### [place] [address] [place] [address] m[IU]/mL Normal . [facility] Comment on above: Performed By: #### L .8249 #### [place] [address] Insulin Dep. di No Normal . [facility] Comment on above: Performed By: #### L .8249 #### [place] [address] Interpretation Normal [facility] Comment on above: Result Comment: Inte rpretation: Screen Negative This result is screen negative for OSB, Down Syndrome and Trisomy 18. The AFP MoM and patient specific risks calculated are based on the gestational age and the clinical information provided. This test can identify up to 80% of open neural tube defects. Closed neural tube defects and some open defects may not be detected by this test. The combination of maternal age, AFP, hCG, uE3, and GIGI identifies 75-80% of Down Syndrome. The combination of maternal age, AFP, hCG and uE3 identifies 60% of Trisomy 18 pregnancies. The [employer] recommends amniocentesis be offered to women age 35 and older. Recalculations are not recommended when gestational dating by LMP and ultrasound are within 10 days. Performed By: #### L .8249 #### [place] [address] [age]ternal Age At 24.1 [age] Normal . [facility] Comment on above: Performed By: #### L .8249 #### [place] [address] Multiple Gestat No Normal . [facility] Comment on above: Performed By: #### L .8249 #### [place] [address] OSBR RISK 1IN [address] Normal . [facility] Comment on above: Performed By: #### L .8249 #### [place] [address] Race Normal . [facility] Comment on above: Performed By: #### L .8249 #### [place] [address] T18 (By Age) 1:3999 Normal . [facility] Comment on above: Performed By: #### L .8249 #### [place] [address] T18 Risk Not increased Normal . [facility] Comment on above: Performed By: #### L .8249 #### [place] [address] TEST RESULTS: Negative Normal . [facility] Comment on above: Performed By: #### L .8249 #### [place] [address] uE3 Mom 1.26 Normal . [facility] Comment on above: Performed By: #### L .8249 #### [place] [address] uE3 VALUE 1.42 ng/mL Normal . [facility] Comment on above: Performed By: #### L 800.8249 #### [place] [address] . Report Normal . [facility] Comment on above: Result Comment: [facility] Performed By: #### L 800.8249 #### [place] [address] US PREG >14WKS SINGLE OR FIR STon 11-27-2018 US PREG >14WKS SINGLE OR [facility] [address] [place], [place] [address] Name: MAHENDRA SHARPE Phys: JONATHAN CARSON M.D. : [birth year] Age: 23 Sex: F Acct: [id number] Loc: [facility] US Exam Date: 11/27/18 Status: REG CLI Radiology No.: [id number] Unit Number: [id number] Exam # Type/Exam [id number] US / US PREG >14WKS SINGLE OR FIRST COMPARISON: [none] Indication ======== anatomy survey. Method ====== Transabdominal ultrasound examination. ========= Nguyen . Number of fetuses: 1. Dating ====== Date Details Gest. age ISAI External assessment 17 w 6 d 05/01/2019 U/S 11/27/2018 based upon AC, BPD, Femur, HC 19 w 1 d 04/22/2019 Assigned dating Dating performed on 11/27/2018, based on the external assessment 17 w 6 d 05/01/2019 General Evaluation Cardiac activity: present. FHR 151 bpm. movements: visualized. Presentation: Variable. Placenta: posterior, Grade 1. Umbilical cord: 3 vessel cord. Amniotic fluid: Amount of AF: normal amount. MVP 4.3 cm. KATHY 12.3 cm. Q1 2.0 cm, Q2 4.3 cm, Q3 2.4 cm, Q4 3.5 cm. Biometry Main Biometry: BPD 43.7 mm 94% 19w 2d Hadlock OFD 55.9 mm 98% 19w 5d Patrick HC 160.2 mm 86% 18w 6d Hadlock AC 143.2 mm 94% 19w 5d Hadlock Femur 29.2 mm 83% 19w 0d Hadlock Cerebellum tr 18.8 mm 88% 19w 0d Mendez Weight Calculation: EFW 285 g >99% 19w 1d Hadlock EFW (lb,oz) 0 lb 10 oz Calculated by Silvia (CTI-LM-UG-FL) Proportionality Ratios: Cephalic index 78.17 HC / AC 1.12 11% Hadlock FL / BPD 66.82 FL / HC 18.23 FL / AC 20.39 Amniotic Fluid / FHR: AF MVP 4.3 cm KATHY 12.3 cm FHR 151 bpm Anatomy The following structures were visualized: Head / Neck Lateral ventricles. Cerebellum. Cisterna magna. Face Lips. Nose. Heart / Thorax 4-chamber view. Abdomen Cord insertion. Stomach. Kidneys. Bladder. Spine / Skelet. Cervical spine. Thoracic spine. Lumbar spine. Sacral spine. Extremities Arms. Legs. Maternal Structures Right Ovary Visualized. Size 4.7 cm x 3.4 cm x 3.4 cm. Mean 3.8 cm. Vol 28.7 ml. Left Ovary Not visualized. due to bowel gas. IMPRESSION: Single live intrauterine with estimated gestational age of 19 weeks and one day. Small placental brunson is not excluded. Follow-up imaging for further detail of anatomy will be required due to early gestational age] Electronically signed by: Tammy Peterson MD 11/28/2018 12:48 PM CDT < > Reported By: BEATRIZ TREJO MD Signed In PowerScribe By: BEATRIZ TREJO MD << Signature on File>> Reported By: BEATRIZ TREJO MD Signed By: BEATRIZ TREJO MD Tests performed at: [address] [address] Normal [facility] HEPATITIS BsAgon 11-01-2018 HEPATITIS BsAg Negative Normal NEGATIVE [facility] Comment on above: Performed By: #### L 304.0460 #### [facility] [address] [place] [address] VZOS IGGon 11-01-2018 VZOS IGG 872 index Normal Immune >165 [facility] Comment on above: Result Comment: Nega tive <135 Equivocal 135 - 165 Positive >165 A positive result generally indicates exposure to the pathogen or administration of specific immunoglobulins, but it is not indication of active infection or stage of disease. Performed at: - [facility] [address] [id number] Litigation Manager: Alpesh Jung PhD, Phone: [phone] Performed By: #### L 800.4560 #### [place] [address] HIV RAPIDon 10-31-2018 HIV Ab + P24 Ag Non-Reactive Normal NONREACTIVE [facility] Comment on above: Performed By: #### L 300.0500 #### [facility] - [facility] [address] [place] [address] RPRon 10-31-2018 Reagin Ab RPR Ql (S) NON-REACTIVE Normal NonReactive [facility] Comment on above: Performed By: #### L 300.0310, L300.0320 #### [facility] - [facility] [address] [place] [address] RUBELLAon 10-31-2018 RUBELLA IMMUNE Normal [facility] Comment on above: Result Comment: REFE RENCE RANGE: IMMUNE Performed By: #### L 300.0310, L300.0320 #### [facility] - [facility] [address] [place] [address] CBCon 10-30-2018 Basophils (Bld) [#/Vol] 0.00 x10(3) Normal 0.00-0.10 [facility] Comment on above: Performed By: #### L 200.0010 #### [facility] [address] [place] [address] Basophils/100 WBC (Bld) 0.2 % Normal 0.0-1.0 [facility] Comment on above: Performed By: #### L 200.0010 #### [facility] [address] [place] [address] Eosinophils (Bld) [#/Vol] 0.00 x10(3) Normal 0.00-0.54 [facility] Comment on above: Performed By: #### L 200.0010 #### [facility] [address] [place] [address] Eosinophils/100 WBC (Bld) 0.4 % Low 0.5-4.9 [facility] Comment on above: Performed By: #### L 200.0010 #### ML [facility] [address] [place] [address] Erythrocyte distribution width (RBC) [Ratio] 13.3 % Normal 12.5-15.7 [facility] Comment on above: Performed By: #### L 200.0010 #### ML [facility] [address] [place] [address] Hematocrit (Bld) [Volume fraction] 37.0 % Normal 36.0-48.0 [facility] Comment on above: Performed By: #### L 200.0010 #### [facility] [address] [place] [address] Hemoglobin (Bld) [Mass/Vol] 12.9 g/dL Normal 12.0-16.0 [facility] Comment on above: Performed By: #### L 200.0010 #### [facility] [address] [place] [address] Lymphocytes (Bld) [#/Vol] 1.70 x10(3) Normal 1.00-3.50 [facility] Comment on above: Performed By: #### L 200.0010 #### [facility] [address] [place] [address] Lymphocytes/100 WBC (Bld) 21.2 % Normal 16.0-48.0 [facility] Comment on above: Performed By: #### L 200.0010 #### [facility] [address] [place] [address] MCH (RBC) [Entitic mass] 31.0 pg Normal 28.5-32.9 [facility] Comment on above: Performed By: #### L 200.0010 #### [facility] [address] [place] [address] MCHC (RBC) [Mass/Vol] 34.9 g/dL Normal 33.0-36.0 [facility] Comment on above: Performed By: #### L 200.0010 #### [facility] [address] [place] [address] MCV (RBC) [Entitic vol] 88.9 fL Normal 80.0-99.0 [facility] Comment on above: Performed By: #### L 200.0010 #### ML [facility] [address] [place] [address] Monocytes (Bld) [#/Vol] 0.60 x10(3) Normal 0.30-0.80 [facility] Comment on above: Performed By: #### L 200.0010 #### [facility] [address] [place] [address] Monocytes/100 WBC (Bld) 7.2 % Normal 4.3-11.2 [facility] Comment on above: Performed By: #### L 200.0010 #### ML [facility] [address] [place] [address] Neutrophils (Bld) [#/Vol] 5.80 x10(3) Normal 1.40-6.50 [facility] Comment on above: Performed By: #### L 200.0010 #### [facility] [address] [place] [address] Neutrophils/100 WBC (Bld) 71.0 % Normal 45.0-73.0 [facility] Comment on above: Performed By: #### L 200.0010 #### ML [facility] [address] [place] [address] Platelet mean volume (Bld) [Entitic vol] 8.8 fL Normal 7.5-9.5 [facility] Comment on above: Performed By: #### L 200.0010 #### [facility] [address] [place] [address] Platelets (Bld) [#/Vol] 192 X10(3) Normal 150-450 [facility] Comment on above: Performed By: #### L 200.0010 #### ML [facility] [address] [place] [address] RBC (Bld) [#/Vol] 4.16 x10(6) Normal 3.30-5.00 [facility] Comment on above: Performed By: #### L 200.0010 #### [facility] [address] [place] [address] WBC (Bld) [#/Vol] 8.2 x10(3) Normal 4.5-10.0 [facility] Comment on above: Performed By: #### L 200.0010 #### [facility] [address] [place] [address] TYPE SCR PNon 10-30-2018 AB SCRN Negative [facility] Comment on above: Performed By: #### B 500.0845 #### [facility] - [facility] [address] [place] [address] BLD TYPE Positive [facility] Comment on above: Performed By: #### B 500.0845 #### [facility] - [facility] [address] [place] [address] IG, rflx HPV-hion 10-12-2018 DIAGNOSIS Normal [facility] Comment on above: Order Comment: Speci men Comment: [id number] Specimen Comment: No. of containers..01 ThinPrep Vial Result Comment: NEGA TIVE FOR INTRAEPITHELIAL LESION OR MALIGNANCY. Performed By: #### L 801.4010 #### [place] [address] Note [facility] Comment on above: Order Comment: Speci men Comment: [id number] Specimen Comment: No. of containers..01 ThinPrep Vial Result Comment: The Pap smear is a screening test designed to aid in the detection of premalignant and malignant conditions of the uterine cervix. It is not a diagnostic procedure and should not be used as the sole means of detecting cervical cancer. Both false-positive and false-negative reports do occur. THIS IS A CORRECTED REPORT 10/11/18 1607: Note previously reported as: Performed By: #### L 801.4010 #### [place] [address] Performed By [facility] Comment on above: Order Comment: Speci men Comment: [id number] Specimen Comment: No. of containers..01 ThinPrep Vial Result Comment: Gracy Johnston Manager Sales Support THIS IS A CORRECTED REPORT 10/11/181606: Performed By previously reported as: Performed By: #### L 801.4010 #### [place] [address] Spec Adequacy [facility] Comment on above: Order [facility]: [facility] Comment: [id number] Specimen Comment: No. of containers..01 ThinPrep Vial Result Comment: Sati sfactory for evaluation. Endocervical and/or squamous metaplastic cells (endocervical component) are present. Performed By: #### L 801.4010 #### [place] [address] Test Methodlogy [facility] Comment on above: Order Comment: [facility]: [id number] Specimen Comment: No. of containers..01 ThinPrep Vial Result Comment: This liquid based ThinPrep(R) pap test was screened with the use of an image guided system. THIS IS A CORRECTED REPORT 10/11/181606: Test Methodlogy previously reported as: Performed By: #### L 801.4010 #### [place] [address] Test Ordered Pap(IG), rflx HPV-hi Normal Un [facility] Comment on above: Order Comment: Speci men Comment: [id number] Specimen Comment: No. of containers..01 ThinPrep Vial Performed By: #### L 801.4010 #### [place] [address] . Normal [facility] Comment on above: Order Comment: Speci men Comment: [id number] Specimen Comment: No. of containers..01 ThinPrep Vial Result Comment: The HPV DNA reflex criteria were not met with this specimen result therefore, no HPV testing was performed. Performed at: [address] [place] [id number] Litigation Manager: Bailee Coon MD, Phone: [phone] THIS IS A CORRECTED REPORT 10/11/18 1607: . previously reported as: Performed By: #### L 801.4010 #### [place] [address] . . Normal . [facility] Comment on above: Order Comment: Speci men Comment: [id number] Specimen Comment: No. of containers..01 ThinPrep Vial Performed By: #### L 801.4010 #### [place] [address] Chlamyda/GC DNAon 10-10-2018 Chlamydia trach Negative Normal Negative [facility] Comment on above: Performed By: #### L 801.6630 #### [place] [address] Neisseria Gonor Negative Normal Negative [facility] Comment on above: Result Comment: Perf ormed at: =G - [facility] [address] [place] [id number] Litigation Manager: Bailee Coon MD, Phone: [phone] Performed By: #### L 801.6630 #### [place] [address] DRUG-CONFon 10-06-2018 AMP + CONF Negative Normal NEGATIVE [facility] Comment on above: Performed By: #### L 100.1800 #### [facility] - [facility] [address] [place] [address] HUEY + CONF Negative Normal NEGATIVE [facility] Comment on above: Performed By: #### L 100.1800 #### [facility] [address] [place] [address] PHUC + CONF Negative Normal NEGATIVE [facility] Comment on above: Performed By: #### L 100.1800 #### [facility] - [facility] [address] [place] [address] CANNAB+CONF Negative Normal NEGATIVE [facility] Comment on above: Performed By: #### L 100.1800 #### [facility] [address] [place] [address] JENNIFER + CONF Negative Normal NEGATIVE [facility] Comment on above: Performed By: #### L 100.1800 #### [facility] - [facility] [address] [place] [address] MTD + CONF Negative Normal NEGATIVE [facility] Comment on above: Performed By: #### L 100.1800 #### [facility] [address] [place] [address] OPI + CONF Negative Normal NEGATIVE [facility] Comment on above: Performed By: #### L 100.1800 #### [facility] [address] [place] [address] OXY + CONF Negative Normal NEGATIVE [facility] Comment on above: Performed By: #### L 100.1800 #### [facility] - [facility] [address] [place] [address] PCP + CONF Negative Normal NEGATIVE [facility] Comment on above: Result Comment: COMM ENT: SPECIMEN TYPE - URINE. Unconfirmed screening results for the Drug Screen Panel should not be used for non-medical purposes. CUTOFFS: Amphetamine cutoff concentration: 1000 ng/mL Cocaine cutoff concentration: 300 ng/mL Opiates cutoff concentration: 300 ng/mL Benzodiazepine cutoff concentration: 200 ng/mL Barbituate cutoff concentration: 200 ng/mL Cannabinoid cutoff concentration: 50 ng/mL Propoxyphene cutoff concentration: 300 ng/mL Methadone cutoff concentration: 300 ng/mL Oxycodone cutoff concentration: 100 ng/mL Phencyclidine cutoff concentration: 25 ng/mL Naomi Method Performed By: #### L 100.1800 #### [facility] - [facility] [address] [place] [address] PROPOX+CONF Negative Normal NEGATIVE [facility] Comment on above: Performed By: #### L 100.1800 #### ML [facility] [address] [place] [address] UA W/C&Son 10-06-2018 Bilirubin Ql (U) Negative Normal NEGATIVE [facility] Comment on above: Performed By: #### L 200.3001 #### ML [facility] [address] [place] [address] Color (U) YELLOW Normal YELLOW [facility] Comment on above: Performed By: #### L 200.3001 #### [facility] [address] [place] [address] Glucose Ql (U) Negative Normal NEGATIVE [facility] Comment on above: Performed By: #### L 200.3001 #### ML [facility] [address] [place] [address] Hemoglobin Ql (U) Negative Normal NEGATIVE [facility] Comment on above: Performed By: #### L 200.3001 #### ML [facility] [address] [place] [address] Leukocyte esterase Test strip Ql (U) Negative Normal NEGATIVE [facility] Comment on above: Performed By: #### L 200.3001 #### [facility] [address] [place] [address] Nitrite Ql (U) Negative Normal NEGATIVE [facility] Comment on above: Performed By: #### L 200.3001 #### [facility] [address] [place] [address] [place] [address] pH (U) 6.0 [pH] Normal 5.0-8.0 [facility] Comment on above: Performed By: #### L 200.3001 #### [facility] [address] [place] [address] Protein Ql (U) Negative Normal NEGATIVE [facility] Comment on above: Performed By: #### L 200.3001 #### [facility] [address] [place] [address] URINE APPEARANC CLEAR Normal CLEAR [facility] Comment on above: Performed By: #### L 200.3001 #### [facility] [address] [place] [address] 88778 URINE KETONE 40 MG/DL Normal NEGATIVE [facility] Comment on above: Performed By: #### L 200.3001 #### [facility] [address] [place] [address] URINE SPECIFIC >=1.030 Normal 1.001-1.035 [facility] Comment on above: Performed By: #### L 200.3001 #### [facility] - [facility] [address] [place] [address] URINE UROBILINO 0.2 EU/DL Normal 0.2-1.0 [facility] Comment on above: Performed By: #### L 200.3001 #### [facility] - [facility] [address] [place] [address] Chlamyda/GC NAAon 08-23-2018 CHLAMYD APTIMA Negative Normal Negative [facility] Comment on above: Performed By: #### L 801.6640 #### [place] [address] GC APTIMA Negative Normal Negative [facility] Comment on above: Result Comment: The specimen received for Ct/Ng testing was removed from the Cytyc vial by the ordering institution. Specific procedures outlined in our Directory of Services and in the ThinPrep 2000 or ThinPrep 3000 Rolling Machine Tender's Manual available from [employer] must be followed to appropriately remove the desired aliquot volume to avoid cross-specimen contamination. Performed at: =[address] [place] [id number] Litigation Manager: Bailee Coon MD, Phone: [phone] Performed By: #### L 801.6640 #### [place] [address] IG, rflx HPV-hion 08-23-2018 DIAGNOSIS [facility] Comment on above: Order Comment: Speci men Comment: [id number] Specimen Comment: Source.............Cervix Specimen Comment: No. of containers..01 ThinPrep Vial Result Comment: NEGA TIVE FOR INTRAEPITHELIAL LESION OR MALIGNANCY. Performed By: #### L 801.4010 #### [place] [address] Note [facility] Comment on above: Order Comment: Speci men Comment: [id number] Specimen Comment: Source.............Cervix Specimen Comment: No. of containers..01 ThinPrep Vial Result Comment: The Pap smear is a screening test designed to aid in the detection of premalignant and malignant conditions of the uterine cervix. It is not a diagnostic procedure and should not be used as the sole means of detecting cervical cancer. Both false-positive and false-negative reports do occur. Performed By: #### L 801.4010 #### [place] [address] Performed By [facility] Comment on above: Order Comment: Speci men Comment: [id number] Specimen Comment: Source.............Cervix Specimen Comment: No. of containers..01 ThinPrep Vial Result Comment: Aurelia Sims Manager Sales Support (ASCP) Performed By: #### L 801.4010 #### [place] [address] Spec Adequacy [facility] Comment on above: Order Comment: Speci men Comment: [id number] Specimen Comment: Source.............Cervix Specimen Comment: No. of containers..01 ThinPrep Vial Result Comment: Sati sfactory for evaluation. Endocervical and/or squamous metaplastic cells (endocervical component) are present. Performed By: #### L 801.4010 #### [facility] [place] [address] Test Methodlogy Normal [facility] Comment on above: Order Comment: Speci men Comment: [id number] Specimen Comment: Source.............Cervix Specimen Comment: No. of containers..01 ThinPrep Vial Result Comment: This liquid based ThinPrep(R) pap test was screened with the use of an image guided system. Performed By: #### L 801.4010 #### [place] [address] Test Ordered Pap(IG), rflx HPV-hi Normal [facility] Comment on above: Order Comment: Speci men Comment: [id number] Specimen Comment: Source.............Cervix Specimen Comment: No. of containers..01 ThinPrep Vial Performed By: #### L 801.4010 #### [place] [address] . [facility] Comment on above: Order Comment: Speci men Comment: [id number] Specimen Comment: Source.............Cervix Specimen Comment: No. of containers..01 ThinPrep Vial Result Comment: The HPV DNA reflex criteria were not met with this specimen result therefore, no HPV testing was performed. Performed at: [address] [id number] Litigation Manager: Bailee Coon MD, Phone: [phone] Performed By: #### L 801.4010 #### [place] [address] . . Normal . [facility] Comment on above: Order Comment: Speci men Comment: [id number] Specimen Comment: Source.............Cervix Specimen Comment: No. of containers..01 ThinPrep Vial Performed By: #### L 801.4010 #### [place] [address] HCGQon 11-15-[place] [address] MIU/ML Normal less than 3 [facility] [place] Comment on above: Result Comment: REFE RENCE COMMENTSLess than 5 mIU/ML NEGATIVE FOR PREGNANCY5-25 mIU/ML BORDERLINE; RETEST IN 48 HOURS, IF INDICATEDGreater than 25 mIU/ML POSITIVE FOR PREGNANCYWEEKS POST LMP RANGE IN mIU/ML* 3-4 9-130 4-5 75-2600 5-6 [phone] 6-7 [phone] 7-12 00110-837804 12-16 [phone] 16-29 [phone] 29-41 [phone] *These ranges are from published literature and may not be appropriate for all cases. When HCG levels are above 4000 mIU/ML, distinction between normal and abnormal is poor. The rate of change (doubling time) may be helpful. (Reference: NCC ) Performed By: #### L 705.00070 ####[facility] SYRORWTYYE5426 [place], [place] [address]St# [phone] HCGQon 11-08-2016 [place]n 4954 MIU/ML Normal less than 3 [facility] Comment on above: Result Comment: SARA WHEELER COMMENTSLess than 5 mIU/ML NEGATIVE FOR PREGNANCY5-25 mIU/ML BORDERLINE; RETEST IN 48 HOURS, IF INDICATEDGreater than 25 mIU/ML POSITIVE FOR PREGNANCYWEEKS POST LMP RANGE IN mIU/ML* 3-4 9-130 4-5 75-2600 5-6 [phone] 6-7 [phone] 7-12 64329-452112 12-16 12214-383242 16-29 [phone] 29-41 [phone] *These ranges are from published literature and may not be appropriate for all cases. When HCG levels are above 4000 mIU/ML, distinction between normal and abnormal is poor. The rate of change (doubling time) may be helpful. (Reference: NCC ) Performed By: #### L 705.68015 ####[facility] AFCDHYCXUM3943 [place], [place] [address]En# [phone] HCGQon 11-06-2016 [place]CG Qn 3071 MIU/ML Normal less than 3 [facility] Comment on above: Result Comment: SARA WHEELER COMMENTSLess than 5 mIU/ML NEGATIVE FOR PREGNANCY5-25 mIU/ML BORDERLINE; RETEST IN 48 HOURS, IF INDICATEDGreater than 25 mIU/ML POSITIVE FOR PREGNANCYWEEKS POST LMP RANGE IN mIU/ML* 3-4 9-130 4-5 75-2600 5-6 [phone] 6-7 [phone] 7-12 42654-425195 12-16 11033-122254 16-29 1400-72699 29-41 [phone] *These ranges are from published literature and may not be appropriate for all cases. When HCG levels are above 4000 mIU/ML, distinction between normal and abnormal is poor. The rate of change (doubling time) may be helpful. (Reference: NCCLS ) Performed By: #### L 705.96519 ####[facility] ANIMJKBCOK3113 [place], [place] [address]Bi# [phone] DHEA SULFATEon 10-07-2016 DHEA SULFATE 246.7 ug/dL Normal 110.0-431.7 [facility] Comment on above: Result Comment: Perf ormed At: [facility] Tchwaf2311 [place], [place] [id number] Vincent [id number] At: [facility] Aeeswrbwzp6417 [place], [place] [id number] William F [id number] Performed By: #### L 500.26701, L500.91327, L500.45634, L550.07919, L550.15946, L550.51065, L550.14764 ####[facility] DAFYDQDQSG5518 [place], [place] [address]Tj# [phone]#### L550.50899, L550.34133 ####[facility]OQPMJCT1648 [place] [address]Bz# [phone] FREE TESTOSTERon 10-07-2016 TEST FREE&WB % 18.4 % High 3.0-18.0 [facility] [place] Comment on above: Performed By: #### L 705.14803 ####[facility] HOYPNDFFRS4644 [place], [place] [address]Ih# [phone] TESTFREEWEAK 10.7 ng/dL High 0.0-9.5 [facility] Comment on above: Performed By: #### L 705.85923 ####[facility] ABFPJPNJZA3957 [place], [place] [address]Ze# [phone] TOTAL TEST 58 ng/dL High 8-48 [facility] Comment on above: Performed By: #### L 705.50028 ####[facility] HJKENFMRAR9020 [place], [place] [address]Ca# [phone] ABO/RHon 10-04-2016 BLOOD TYPE Positive Normal [facility] CBCon 10-04-2016 Erythrocyte distribution width Auto Ratio (RBC) 12.8 % Normal 11-14.5 [facility] Comment on above: Performed By: #### L 200.63339 ####[facility] - [address] [address]RZ# [phone] Erythrocytes (RBC) 4.82 M/CU MM Normal 3.9-5.30 [facility] Comment on above: Performed By: #### L 200.23481 ####[facility] - [address] [address]ER# [phone] Hematocrit (HCT) 43.7 % Normal 35.0-47.0 [facility] Comment on above: Performed By: #### L 200.62008 ####[facility] - [address] [address]KW# [phone] Hemoglobin mass conc (Bld) 14.5 g/dL Normal 11.5-15.5 [facility] Comment on above: Performed By: #### L 200.96096 ####[facility] - [address] [address]YO# [phone] MCHC mass conc (RBC) 33.2 g/dL Normal 32.0-36.0 [facility] Comment on above: Performed By: #### L 200.57268 ####[facility] - [id number] [place], [place] [address]MC# [phone] MCV 90.7 fL Normal 80.0-99.0 [facility] Comment on above: Performed By: #### L 200.87084 ####[facility] - TGTDSGAEPB0928 [place], [place] [address]YG# [phone] Platelets 229 K/CU MM Normal 150-450 [facility] [place] Comment on above: Performed By: #### L 200.18982 ####[facility] - [address] [address]LQ# [phone] WBC (Leukocytes) 6.1 K/CU MM Normal 4.5-11.0 [facility] [place] Comment on above: Performed By: #### L 200.23294 ####[facility] - [address] [address]OB# [phone] CMPon 10-04-2016 Alanine aminotransferase (ALT) 26 U/L Normal 13-61 [facility] Comment on above: Performed By: #### L 500.66008, L500.79278, L500.35548, L550.15637, L550.96098, L550.25472, L550.21967 ####[facility] YQORKCOYSL6603 [place], [place] [address]Ot# [phone]#### L550.59742, L550.29165 ####[facility]ITALIJDKVWA8214 [place] [address]Um# [phone] Albumin 3.7 g/dL Normal 3.2-5.0 [facility] Comment on above: Performed By: #### L 500.21606, L500.94043, L500.95360, L550.12159, L550.32982, L550.69781, L550.36255 ####[facility] GUSGTQCCLN6784 [place], [place] [address]Ee# [phone]#### L550.82737, L550.10428 ####[facility] OF CBINFIX[address] [place] [address]Nh# [phone] Albumin/Globulin Ratio 1.2 {ratio} Normal 0.8-2.0 [facility] Comment on above: Performed By: #### L 500.31945, L500.52471, L500.29738, L550.76162, L550.09113, L550.25829, L550.41566 ####[facility] UNYSKHIDXN1761 [place] [address]Ph# [phone]#### L550.64580, L550.53825 ####[facility] OF LKDKKVH0915 [place] [address]Ph# [phone] ALK PHOS 62 U/L Normal 45-117 [facility] Comment on above: Performed By: #### L 500.83829, L500.43243, L500.09868, L550.55277, L550.15572, L550.58951, L550.70418 ####[facility] GFWSWMLPTP8093 [place] [address]Ph# [phone]#### L550.30162, L550.75834 ####[facility] OF ESRLFYH[address] [place] [address]La# [phone] Anion gap 9 mmol/L Normal 5-16 [facility] Comment on above: Performed By: #### L 500.69761, L500.45808, L500.17451, L550.35039, L550.06618, L550.72818, L550.23850 ####[facility] YBVSCYDVKC2832 [place], [place] [address]Bf# [phone]#### L550.03017, L550.99560 ####[facility] OF YLBUTYY[address]Ph# [phone] BILI TOTAL 0.3 MG/DL Normal 0.2-1.0 [facility] Comment on above: Performed By: #### L 500.95836, L500.57820, L500.09779, L550.80364, L550.39145, L550.65617, L550.67322 ####[facility] TBQWARJWDY1200 [place], [place] [address]Uq# [phone]#### L550.83563, L550.58540 ####[facility] OF IVMNCMG7408 [place] [address]Fa# [phone] BUN/Creatinine Ratio 14 mg/mg Low 15-24 [facility] Comment on above: Performed By: #### L 500.39894, L500.02509, L500.37019, L550.84240, L550.26064, L550.16505, L550.34970 ####[facility] JJAOTEDGTN5817 [place], [place] [address]Rt# [phone]#### L550.14526, L550.66619 ####[facility] OF XEZVIFL7595 [place] [address]Dk# [phone] Calcium 8.8 mg/dL Normal 8.5-10.1 [facility] Comment on above: Performed By: #### L 500.82231, L500.73609, L500.48106, L550.42889, L550.73407, L550.40508, L550.50612 ####[facility] XKHEDUJFZT6190 [place], [place] [address]Bd# [phone]#### L550.25614, L550.76589 ####[facility] OF HGMXEAZ2177 [place] [address]Ci# [phone] Chloride 106 mmol/L Normal 98-107 [facility] Comment on above: Performed By: #### L 500.85198, L500.34943, L500.99877, L550.65259, L550.43915, L550.59215, L550.67167 ####[facility] RULVBNERBR5552 [place], [place] [address]Tv# [phone]#### L550.57702, L550.60872 ####[facility] OF MNDDCXP1403 [place] [address]Le# [phone] CO2 25 mmol/L Normal 21-32 [facility] [place] Comment on above: Performed By: #### L 500.79041, L500.00383, L500.10874, L550.38969, L550.53172, L550.63145, L550.27764 ####[facility] HLPGWNEFDA5206 [place], [place] [address]Aj# [phone]#### L550.72409, L550.17749 ####[facility] OF NSWWSZX1381 [place] [address]Ph# [phone] Creatinine 0.624 mg/dL Normal 0.510-0.950 [facility] Comment on above: Result Comment: Nicky ents receiving either N-Acetylcysteine (NAC) orMetamizole prior to venipuncture, may have falsely depressedresults. Performed By: #### L 500.25527, L500.44563, L500.33719, L550.20969, L550.10584, L550.29456, L550.40098 ####[facility] QVEWYFDOCC3055 [place], [place] [address]Xa# [phone]#### L550.89114, L550.90626 ####[facility] OF DYFNQYL6861 [place] [address]Cc# [phone] Globulin 3.0 g/dL Normal 2.2-4.2 [facility] Comment on above: Performed By: #### L 500.70476, L500.33421, L500.26583, L550.69699, L550.00809, L550.32279, L550.07675 ####[facility] GAOHGRJYUO7088 [place], [place] [address]Zf# [phone]#### L550.57457, L550.16511 ####[facility] OF XFHOCTX7631 [place] [address]Sz# [phone] Glucose mass conc 81 mg/dL Normal 70-100 [facility] [place] Comment on above: Result Comment: 70-1 00-Normal Fasting; 506-624-Iqfyluad Fasting; greaterthan 126 on more than one result-Diabetes. ADA guidelines Performed By: #### L 500.50304, L500.71746, L500.63492, L550.85175, L550.27358, L550.54426, L550.25237 ####[facility] YWYYV[address]XKBG[address] [place] [address]Wz# [phone]#### L550.48009, L550.12756 ####[facility] OF UELADEC6050 [place] [address]Za# [phone] Potassium molar conc 4.4 mmol/L Normal 3.5-5.1 [facility] [place] Comment on above: Performed By: #### L 500.80591, L500.70014, L500.47556, L550.15092, L550.96000, L550.80894, L550.46599 ####[facility] EVNHOJYUNW2494 [place], [place] [address]Hk# [phone]#### L550.21847, L550.71081 ####[facility] OF QIJKIVY3828 [place] [address]Mm# [phone] Protein 6.7 g/dL Normal 6.0-8.5 [facility] [place] Comment on above: Performed By: #### L 500.00353, L500.98306, L500.60723, L550.32996, L550.62218, L550.90681, L550.93976 ####[facility] RDDVGETMRN0596 [place], [place] [address]Oq# [phone]#### L550.83352, L550.03547 ####[facility] OF ONMGEQG0464 [place] [address]Du# [phone] SGOT (AST) 17 U/L Normal 8-34 [facility] Comment on above: Performed By: #### L 500.51845, L500.59273, L500.08236, L550.64082, L550.10839, L550.75742, L550.24025 ####[facility] UIMZOQFJTI0935 [place], [place] [address]Os# [phone]#### L550.67752, L550.51142 ####[facility] OF XHOITVY7025 [place] [address]Ph# [phone] Sodium 140 mmol/L Normal 136-145 [facility] Comment on above: Performed By: #### L 500.26522, L500.66849, L500.21981, L550.38132, L550.91100, L550.15242, L550.25989 ####[facility] MRKXIPVTJI7257 [place], [place] [address]Jx# [phone]#### L550.21914, L550.62151 ####[facility] OF KMFLQAY0343 [place] [address]Jf# [phone] Urea nitrogen 9 mg/dL Normal 7-26 [facility] Comment on above: Performed By: #### L 500.83836, L500.85267, L500.24068, L550.20106, L550.61350, L550.50148, L550.24541 ####[facility] SLONZKYJKZ7702 [place], [place] [address]Zg# [phone]#### L550.51576, L550.54191 ####[facility] OF BKUCQZV6382 [place] [address]Vk# [phone] ESTRADIOLon 10-04-2016 ESTRADIOL 73.7 PG/ML Normal SEE CHART [facility] Comment on above: Result Comment: Fema le Reference Range: Follicular Phase (-12 to -4 days) 19.5 - 144.2 pg/ml Midcycle Phase (-3 to +2 days) 63.9 - 356.7 pg/ml Luteal Phase (+4 to +12 days) 55.8 - 214.2 pg/ml Postmenopausal females 0 - 32.2 pg/ml Performed By: #### L 500.43955, L500.58993, L500.26505, L550.31223, L550.05604, L550.94266, L550.78239 ####[facility] IFMAWYZLKI6492 [place], [place] [address]Hu# [phone]#### L550.76483, L550.99291 ####[facility] OF OTGHTCZ9296 [place] [address]Zm# [phone] FREE TESTOSTERon 10-04-2016 TESTOSTERO LCMS TNP Normal [facility] Comment on above: Performed By: #### L 705.34820 ####[facility] MLPEMXYUTL7885 [place], [place] [address]Vo# [phone] FSHon 10-04-2016 FSH 6.8 MIU/ML Normal SEE CHART [facility] Comment on above: Result Comment: Fema le Reference Range: Follicular 2.5 - 10.2 MIU/ML Midcycle 3.4 - 33.4 MIU/ML Luteal 1.5 - 9.1 MIU/ML Less Than 0.3 MIU/ML Postmenopausal 23.0 -116.3 MIU/ML Performed By: #### L 500.96985, L500.34629, L500.75757, L550.79390, L550.76139, L550.81294, L550.00681 ####[facility] BJFMHZHWOQ2692 [place], [place] [address]Yg# [phone]#### L550.96245, L550.34082 ####[facility] OF QZYJOBR2906 [place] [address]No# [phone] GFR ESTon 10-04-2016 IF AMER Greater than 60 Normal [facility] Comment on above: Performed By: #### L 500.26431, L500.12364, L500.01380, L550.55105, L550.68137, L550.55398, L550.45809 ####[facility] JDTTNLSRDP8600 [place], [place] [address]Uc# [phone]#### L550.52082, L550.83572 ####[facility] OF UZGYPWE6862 [place] [address]Uh# [phone] IF non-AFR AMER Greater than 60 Normal [facility] Comment on above: Performed By: #### L 500.29075, L500.24557, L500.48807, L550.58607, L550.05998, L550.90397, L550.72785 ####[facility] KQKCSVUDAN2539 [place], [place] [address]Sy# [phone]#### L550.94105, L550.33178 ####[facility] OF AGFEMFP9227 [place] [address]Wv# [phone] LHon 10-04-2016 LH 14.9 MIU/ML Normal SEE CHART [facility] Comment on above: Result Comment: Fema le Reference Range: Follicular 1.9 - 12.5 MIU/ML Midcycle 8.7 - 76.3 MIU/ML Luteal 0.5 - 16.9 MIU/ML 0.0 - 1.5 MIU/ML Postmenopausal 15.9 - 54.0 MIU/ML Performed By: #### L 500.42968, L500.74530, L500.63543, L550.04982, L550.82970, L550.06044, L550.71662 ####[facility] GGTIEHBWUY9997 [place], [place] [address]Ix# [phone]#### L550.99018, L550.29320 ####[facility] KOLFPZT3872 [place] [address]Rj# [phone] PROLACTINon 10-04-2016 PROLACTIN 14.1 NG/ML Normal SEE CHART [facility] Comment on above: Result Comment: Fema le Reference Range: Non- 2.8 - 29.2 ng/ml 9.7 - 208.5 ng/ml Postmenopausal 1.8 - 20.3 ng/ml Performed By: #### L 705.28849 ####[facility] XMORDRACFF2984 [place], [place] [address]Dh# [phone] RUBELLA IGG ABon 10-04-2016 RUBELLA IGG AB IMMUNE Normal [facility] Comment on above: Result Comment: <5 I U/ML- Non-Immune for IgG antibodies to Rubella Virus.>= 5-9.9 IU/ML- Equivocal for IgG antibodies to Rubella Virus. Obtain a new specimen and test using Centaur Rubella IgG assay.>= 10 IU/ML- Immune for IgG antibodies to Rubella Virus.<5 IU/ML- Non-Immune for IgG antibodies to Rubella Virus.>= 5-9.9 IU/ML- Equivocal for IgG antibodies to Rubella Virus. Obtain a new specimen and test using Centaur Rubella IgG assay.>= 10 IU/ML- Immune for IgG antibodies to Rubella Virus. Performed By: #### L 705.51735 ####[facility] VEKEWZOLWX0054 [place], [place] [address]Gb# [phone] TSHon 10-04-2016 Thyroid stimulating hormone (TSH) 2.050 UIU/ML Normal 0.358-3.740 [facility] Comment on above: Result Comment: 3rd generation ultra sensitive TSH Performed By: #### L 500.41832, L500.20665, L500.29084, L550.77442, L550.87016, L550.34307, L550.90153 ####[facility] ZOFDPTWRWO4280 [place], [place] [address]Yv# [phone]#### L550.77133, L550.13457 ####[facility] OF HDPHSMF1745 [place] [address]Bm# [phone] Vital Signs Date Time Vital Sign Value Performing Clinician Facility 09-06-2024 09:23-0400 Body height 149.[address] Maverick Barr MD Work Phone: [facility] 09-06-2024 09:23-0400 Body temperature 97.5 [degF] Dr. Maverick Barr MD Work Phone: [facility] 09-06-2024 09:23-0400 Diastolic blood pressure 78 mm[Hg] Dr. Maverick Barr MD Work Phone: [facility] 09-06-2024 09:23-0400 Heart rate 61 /min Dr. Maverick Barr MD Work Phone: [facility] 09-06-2024 09:23-0400 Respiratory rate 18 /min Dr. Maverick Barr MD Work Phone: [facility] 09-06-2024 09:23-0400 SaO2% (BldA) [Mass fraction] 98 % Dr. Maverick Barr MD Work Phone: [facility] 09-06-2024 09:23-0400 Systolic blood pressure 114 mm[Hg] Dr. Maverick Barr MD Work Phone: [facility] 07-19-2024 09:21-0400 Body mass index (BMI) [Ratio] 38.3 kg/m2 Dr. Maverick Barr MD Work Phone: [facility] 07-19-2024 09:21-0400 Body temperature 97 [degF] Dr. Maverick Barr MD Work Phone: [facility] 07-19-2024 09:21-0400 Body weight 86.[address] Maverick Barr MD Work Phone: [facility] 07-19-2024 09:21-0400 Diastolic blood pressure 84 mm[Hg] Dr. Maverick Barr MD Work Phone: [facility] 07-19-2024 09:21-0400 Heart rate 65 /min Dr. Maverick Barr MD Work Phone: [facility] 07-19-2024 09:21-0400 Respiratory rate 18 /min Dr. Maverick Barr MD Work Phone: [facility] 07-19-2024 09:21-0400 SaO2% (BldA) [Mass fraction] 97 % Dr. Maverick Barr MD Work Phone: [facility] 07-19-2024 09:21-0400 Systolic blood pressure 122 mm[Hg] Dr. Maverick Barr MD Work Phone: [facility] 04-13-2024 19:55-0500 Diastolic blood pressure 82 mm[Hg] Radha Ledger [employer] Work Phone: [facility] 04-13-2024 19:55-0500 Systolic blood pressure 125 mm[Hg] Radha Ledger [employer] OPERATOR[employer] Work Phone: [facility] 04-13-2024 19:32-0500 Body mass index (BMI) [Ratio] 36.66 kg/m2 Radha Ledger [employer] OPERATOR[employer] Work Phone: [facility] 04-13-2024 19:32-0500 Body temperature 98.6 [degF] Radha Ledger [employer] OPERATOR[employer] Work Phone: [facility] 04-13-2024 19:32-0500 Body weight 87.95 kg Radha Ledger [employer]EC[employer] OPERATOR[employer] Work Phone: [facility] 04-13-2024 19:32-0500 Heart rate 74 /min Radha Ledger [employer] OPERATOR[employer] Work Phone: [facility] 04-13-2024 19:32-0500 Respiratory rate 18 /min Radha Ledger [employer] OPERATOR[employer] Work Phone: [facility] 04-13-2024 19:32-0500 SaO2% (BldA) [Mass fraction] 100 % Radha Ledger [employer] OPERATOR[employer] Work Phone: [facility] 07-09-2023 14:55-0400 Body temperature 98.01 [degF] Leann Cool [employer] OPERATOR[employer] Work Phone: [facility] 07-09-2023 14:55-0400 Body weight 83.92 kg Leann Cool [employer] OPERATOR[employer] Work Phone: [facility] 07-09-2023 14:55-0400 Diastolic blood pressure 76 mm[Hg] Leann Cool [employer] OPERATOR[employer] Work Phone: [facility] 07-09-2023 14:55-0400 Heart rate 64 /min Leann Cool [employer] OPERATOR[employer] Work Phone: [facility] 07-09-2023 14:55-0400 Respiratory rate 18 /min Leann Cool [employer] OPERATOR[employer] Work Phone: [facility] 07-09-2023 14:55-0400 SaO2% (BldA) [Mass fraction] 100 % Leann Cool [employer] OPERATOR[employer] Work Phone: [facility] 07-09-2023 14:55-0400 Systolic blood pressure 112 mm[Hg] Leann Cool [employer] OPERATOR[employer] Work Phone: [facility] 11-29-2018 12:01-0400 Body weight 79.38 kg [facility] Comment on above: Performed By: #### [id number] #### [place] [address] Encounters Encounter Date Encounter Type Care Provider Facility Start: 09-06-2024 End: 09-06-[address] Maverick Barr MD Work Phone: [facility] Work Phone: Start: 09-06-2024 End: 09-06-[address] Maverick Barr MD -[facility] Work Phone: Start: 07-19-2024 End: 07-19-[address] Maverick Barr MD -[facility] Work Phone: Start: 07-19-2024 End: 07-19-2024 ambulatory Maverick Barr Facility:[facility] Start: 04-13-2024 End: 04-13-2024 Patient encounter procedure Radha Connor [employer] OPERATOR[employer] Work Phone: [facility] Comment on above: Sebaceous cyst (Prim kian Dx) Start: 07-09-2023 End: 07-09-2023 ambulatory MELINDA JOHNSTON Facility:[id number] Start: 07-09-2023 End: 07-09-2023 Patient encounter procedure Leann Pritchardo [employer] OPERATOR[employer] Work Phone: [facility] Comment on above: Cutaneous cyst (Prim kian Dx); Contact dermatitis, unspecified contact dermatitis type, unspecified trigger Start: 01-30-2021 End: 01-30-2021 ambulatory [facility] Start: 11-15-2016 Ambulatory [facility] Facility: [facility] Start: 11-08-2016 Ambulatory [facility] Facility: [facility] Start: 11-06-2016 Ambulatory [facility] Facility: [facility] Start: 10-04-2016 Ambulatory [facility] Facility: [facility] Plan of Treatment Date Care Activity Detail Author Start: 11-20-2023 Covid-19 Vaccine ( season) Covid-19 Vaccine ( season) [facility] Start: 11-20-2023 Influenza vaccination [facility] Start: 03-21-2023 Behavioral Health Screening Behavioral Health Screening [facility] Start: 11-19-2022 Covid-19 Vaccine ( season) Covid-19 Vaccine ( season) [facility] Start: 10-06-2021 Screening for malign ant neoplasm of cervix [facility] Start: 2013 Hepatitis B Vaccine (1 of 3 - 19+ 3-dose series) Hepatitis B Vaccine (1 of 3 - 19+ 3-dose series) [facility] Start: 2013 Urine microalbumin profile DTa P,Tdap,Td Vaccine (1 - Tdap) [facility] Start: 2012 Anxiety Screening Anxiety Screening [facility] Start: 2012 Depression Screening Depression Scre ening [facility] Start: 2012 Hepatitis C screening Hepatitis C Sc abi [facility] Start: 2012 HIV [facility] Payers Date Payer Category Payer Self-pay 2023 [id number] 2023-Present [id number] [place] [address] Other [id number] 2023 Unknown [id number] 2016 Unknown [id number] 1995 Unknown [id number] Unknown [id number] Unknown [id number] Social History Date Type Detail Facility Start: 07-09-2023 Tobacco smoking status NHIS Never smoked tobacco [facility] Start: 07-09-2023 Tobacco use and exposure Smokeless tobacco non-user [facility] Start: 07-09-2023 End: 04-13-2024 Alcohol intake Current drinker of alcohol (finding) [facility] Start: 07-24-2020 End: 10-18-2022 History of Social function [facility] Start: 07-24-2020 End: 10-18-2022 Alcohol Use Disorder Identification Test - Consumption [AUDIT-C] [facility] How often to you hav e a drink containing alcohol? Never [facility] Average Number of Drinks Not on file [facility] Start: 07-24-2020 Alcohol Comment rare [facility] Start: 1995 Sex Assigned At Not on file [facility] Tobacco smoking stat us NHIS Unknown if ever smoked [facility] Work Phone: Start: 1995 Sex Assigned At Female [facility] Clinical Notes 07-09-2023 to 09-06-2024 Note Date & Type Note Facility 09-06-2024 Progress note [facility] 09-06-2024 Progress note Note Date/Time September 06, 2024 9:58am [facility] [address], [address] [place], [place] [address] OFFICE VISIT Date of Service: 09/06/24 MR#: [id number] Acct: [id number] Name: MAHENDRA SHARPE Rep #: [id number] : 1995 Provider: Dr. Givens rt MD Cortney Age/Sex: 29/F Location: [facility] Status: Signed Intake Vital Signs 3 07/19/24 09:21 09/06/24 09:23 Height 4 ft 11 in 4 ft 11 in Weight: 190 lb BMI 38.3 BP 122/84 H 114/78 Blood Pressure Location Rt brachial Rt brachial Position Sitting Sitting Respiration 18 18 Pulse 65 61 Pulse Source Monitor Temp 97 F L 97.5 F L Temp Source Oral Pulse Oximetry (%) 97 98 Oxygen Delivery Method room air room air Intake Visit Reasons: in office procedure Chief Complaint: in office procedure Accompanied by: Is patient in pain?: No Allergies No Known Allergies Allergy (Verified 09/06/24 09:24) Medications 3 ?Medication ?Instructions ?Recorded ?Confirmed ?Type NK 07/19/24 07/19/24 History doxycycline hyclate 100 mg capsule 100 mg PO BID 7 day s #14 caps 09/06/24 09/06/24 Rx Nurse's Note: pt here with for in office procedure HPI in office procedure Details: Mahendra Sharpe is a delightful 29-year-old female who is otherwise healthy with no significant past medical history (not a smoker no diabetes) who presents for evaluation of 3 different problems. The first problem is a right earlobe cyst present for approximately 2 years which started to drain and became inflamed about a month ago requiring short course of oral antibiotics from an urgent care. The cyst is intermittently painful and drains behind the ear. Her other issue is to changing melanocytic lesions on the face, 1 on the right upper lip, and 1 on the left mandibular angle. She reports that they have been changing in color and size recently. No personal or family history of bleeding or clotting problems Current Encounter (DATE OF SURGERY H&P UPDATE): I saw and examined the patient this morning in THE OFFICE. We discussed risks and benefits of today's surgery and they would like to proceed. NO CHANGE in health history since last seen and evaluated. Ready to proceed with THE EXCISIONS. lidocaine w epi [facility] [id number] exp lot [id number] Exam Details Right ear lobe with 2 x 2 cm cyst with posterior sinus through the skin. Appears to have white/cystic material within the cyst wall. No induration or surrounding signs of infection Small melanocytic nevus with varying pigmentation and slightly irregular borderson the right upper keratinized lip. Small melanocytic nevus with varying pigmentation and slightly irregular bordersin the left mandibular angle. Office Procedures Procedure Time Out Time Out Informed consent given: Yes Consent signed: Yes Time out checklist: patient, procedure, site marked/identified, positioning of patient, supplies available, allergies confirmed and team agrees on procedure Time out staff in room: Yes Time out verified: Yes Time out date: 09/06/24 Time out time: 09:35 Coding Level of Care Code Attention Wander Diagnoses Epidermal cyst of ear L72.0 Neoplasm of uncertain behavior of skin of face D48.5 Comment See cpt codes above Assessment and Plan (No Qualifiers) Assessment and Plan (1) Epidermal cyst of ear: Status: Acute Comment: Right earlobe Plan: I talked to the patient about excision of the cyst including the cyst wall. Posterior earlobe incision. I talked to her about the risks, benefits, and alternatives to excision. We talked about earlobe distortion and recurrence of the mass. We talked about infection risk, as well as bleeding risk and scarringrisk. She would like to proceed. (2) Neoplasm of uncertain behavior of skin of face: Status: Acute Comment: Right upper lip and left mandibular angle Plan: Warrants biopsy given history. Both lesions will be excised and closed/sent to pathology. I talked her about the risks of scarring, as well as sunscreen and sun protection and silicone scar tape. She understands that she is going to have scars after this, and there is a risk of hypertrophic scar keloiding or unacceptable scar requiring revision or treatments. She also understands the risks of surgery, including bleeding, infection, damage to surrounding structures, and recurrence of the lesion. Plan PROCEDURE CONSENT SIGNED PROCEDURES: 1) Excision right posterior earlobe lesion, 1 x 1.2 cm (CPT 71922) 2) Intermediate closure, right earlobe, 2 cm (CPT: 26893) 3) Excision left mandibular angle pigmented lesion, 0.25 x 0.25 cm (CPT: 75707) 4) Simple closure left mandibular angle excision site, 0.5 cm (cpt 57165) 5) Excision right upper lip pigmented lesion, 0.25 x 0.25 cm (CPT: 24435) 6) Simple closure right upper lip excision site, 0.5 cm Procedure details Patient was marked in the office and anesthetized with 1% lidocaine with 1-200,000 epinephrine. The sites were prepped and draped in sterile fashion and atimeout was performed 15 blade scalpel was used to excise the right upper lip and the left mandibular angle lesions for excisions of 0.25 x 0.25 cm at both sites. The sites were sent to pathology. Wounds were irrigated with copious amounts normal saline andclosed with interrupted 5-0 Prolene suture. Attention was then turned to the right earlobe where a 1.2 x 1 cm right earlobe lesion was excised with a 15 blade scalpel and tenotomy scissors to circumferentially remove the cyst wall. Hemostasis was obtained with bipolar electrocautery (pen Bovie) and the wound was irrigated with copious amounts normal saline and closed with 4-0 Monocryl deep dermal suture followed by interrupted 4-0 Monocryl top suture. Bacitracin was applied. Patient toleratedthe procedure well. Cysts and lesions were sent to pathology separately Postoperative plan: No pressure on the sites. Doxycycline 100 mg twice daily for 1 week Follow-up on Tuesday, 12 September 2024 for suture removal with nursing Follow-up with me in clinic in 2 weeks for wound check and for pathology 09/06/24 [id number] <Electronically signed by Maverick Barr MD> Date _ Maverick Barr MD Cosigner Signature: Date (if applicable) CC: ~ [place] [email or web address] Work Phone: 1(207) 412-469905-01-2025 Chief complaint+Reason for visit Narrative * Chief Complaint Admit Date SKIN CHECK July 19, 2024 8:58am in office procedure September 06, 2024 8:52 am Reason for Visit Admit Date Epidermal cyst of ear July 19, 2024 8:58 am Neoplasm of uncertain behavior of skin o f face July 19, 2024 8:58am Epidermal cyst of ear September 06, 2024 8: 52am Neoplasm of uncertain behavior of skin o f face September 06, 2024 8:52am [facility] Work Phone: 1(655) 364-135105-01-2025 Evaluation note* Diagnosis Onset Date Resolution Status Admit Date Epidermal cyst of ear acute July 19, 2024 8:58am Neoplasm of uncertain behavi or of skin of face acute July 19, 2024 8: 58am Epidermal cyst of ear acute Aleks 2024 8:52am Neoplasm of uncertain behavi or of skin of face acute September 06, 2024 8:52am [facility] Work Phone: 1(896) 160-521501-24-2025 History of Present illness Narrative* Radha Connor, ABRAHAM.[employer] - 04/13/2024 7:52 PM EST Images from the original note were not included. April 13, 2024 Subjective Chief Complaint: Ear Problem (Lump to the back of right ear with soreness x 9 months. States she was here for this before and the cyst was drained. ) HPI: Mahendra Sharpe is a 29 year old female who presents today for a cyst behind her right ear. [facility] and had it [facility]. Patient has not followed up with dermatology. Does report she has seen Dr. Sandra Ferrer in the past but it has been a while. PAST MEDICAL HISTORY Diagnosis Date Sebaceous cyst of ear History reviewed. No pertinent surgical history. FAMILY HISTORY Problem Relation Age of Onset No Known Problems Mother No Known Problems Father Social History Tobacco Use Smoking status: Never Smokeless tobacco: Never Vaping Use Vaping status: Never Used Substance Use Topics Alcohol use: Yes Comment: rare Drug use: Never ALLERGIES No Known Allergies There is no immunization history on file for this patient. Current Medications: cephALEXin (KEFLEX) 500 mg capsule Take 1 capsule by mouth four times daily for 5 days. Review of Systems Constitutional: Negative. HENT: Negative. Eyes: Negative. Respiratory: Negative. Cardiovascular: Negative. Gastrointestinal: Negative. Genitourinary: Negative. Musculoskeletal: Negative. Skin: Negative for itching and rash. Cyst behind right ear Neurological: Negative. Objective BP 126/90 Pulse 74 Temp 98.6 Resp 18 Wt 193 lb 14.3 oz (88.0kg) SpO2 100% LMP 03/09/2024 Physical Exam Vitals and nursing note reviewed. Constitutional: Appearance: Normal appearance. HENT: Head: Normocephalic and atraumatic. Right Ear: Tympanic membrane, ear canal and external ear normal. There is no impacted cerumen. Left Ear: Tympanic membrane, ear canal and external ear normal. There is no impacted cerumen. Nose: Nose normal. Mouth/Throat: Mouth: Mucous membranes are moist. Pharynx: Oropharynx is clear. Eyes: Extraocular Movements: Extraocular movements intact. Conjunctiva/sclera: Conjunctivae normal. Pupils: Pupils are equal, round, and reactive to light. Cardiovascular: Rate and Rhythm: Normal rate and regular rhythm. Pulses: Normal pulses. Heart sounds: Normal heart sounds. Pulmonary: Effort: Pulmonary effort is normal. Breath sounds: Normal breath sounds. Abdominal: General: Bowel sounds are normal. Palpations: Abdomen is soft. Musculoskeletal: General: Normal range of motion. Cervical back: Normal range of motion and neck supple. Skin: General: Skin is warm and dry. Neurological: General: No focal deficit present. Mental Status: She is alert and oriented to person, place, and time. Psychiatric: Mood and Affect: Mood normal. Medical Decision Making: Problems: Low: Acute, uncomplicated illness or injury Data: Unique source(s) for external note(s) reviewed: 1 Risk: Moderate: Drug management and Moderate risk from testing/treatment Medical Decision Making Level: 3 - Low ASSESSMENT/PLAN: 1. Sebaceous cyst - ICD9: 706.2, ICD10: L72.3 - CEPHALEXIN 500 MG CAPSULE -follow up with dermatology Radha Connor APRN.[employer] This note was partially generated using [employer] voice recognition system and there may be some incorrect words, spelling's, and punctuation that were not noted in checking the note before saving. The above reflects my independent exam and review of the patient's medical record. I saw and examined the patient myself personally. Parts of the HPI, ROS, exam, impression/plan, and testing results may have been copied from the current or previous clinical notes and remain pertinent to today's visit. Current changes have been made and documented today. Other parts or data may have been deleted if notrelevant for today. Plan as outlined above. [facility] Instructions* Patient Instructions* Radha Connor APRN.[place] - 04/13/2024 7:49 PM EST You have a sebaceous cyst of your right ear. I drained it but the sac needs removed. I will cover with Keflex 500 mg 4x/day for 5 days. Follow up with Dr. Clarisse Ferrer if you have seen her before FOLLOW UP WITH DERMATOLOGY IF NOT BETTER IN 5-[address] SANDRA FERRER [address], [address] [facility] [address] [place] [phone] DR JASBIR [place]NOX [place], [place] [phone] [facility]-DR NARCISO MAL[facility]OJ.[facility] [phone] [facility] [phone], call to establish if you do not have a primary care provider documented in this encounterSumma Health [facility]04-20-2024 NoteHNO ID: [id number] Author: LEANN COOL APRN.CNP Service: ? Author Type: Nurse Practitioner Type: Progress Notes Filed: 07/09/2023 15:47 Note Text: July 09, 2023 Subjective Chief Complaint: Derm Problem (Patient stated that red raised bump behind right earlobe area x 1 week. Lump just got more painful and grew in size in the past few days. /Very warm to the touch. /OTC: Benadryl /Red raised bumps on bilateral legs x 1 weeks. ) HPI: Mahendra Sharpe is a 28 year old female who presents today for raised bump to the back of right earlobe. Patient states that she noticed a lump to the back of her ear lobe for approximately 1 year. States over the course of the past week it has increased in size and is painful. Patient is unsure if it is reddened. Denies any trauma. Has never had her ears pierced. Denies any fever. States the area feels warm to the touch. Patient also states that she has itchy red raised bumps/rash to bilateral legs. States that the rash on her legs seems to be drying up. History reviewed. No pertinent past medical history. History reviewed. No pertinent surgical history. FAMILY HISTORY Problem Relation Age of Onset No Known Problems Mother No Known Problems Father Social History Tobacco Use Smoking status: Never Smokeless tobacco: Never Vaping Use Vaping Use: Never used Substance Use Topics Alcohol use: Yes Comment: rare Drug use: Never ALLERGIES No Known Allergies There is no immunization history on file for this patient. Current Medications: No prescriptions on file. Review of Systems Constitutional: Negative for chills, fever and malaise/fatigue. HENT: Positive for ear pain (earlobe). Negative for ear discharge, hearing loss, sinus pain and sore throat. Lump right earlobe Eyes: Negative for discharge and redness. Gastrointestinal: Negative for diarrhea and vomiting. Skin: Positive for rash. Objective BP 112/76 Pulse 64 Temp 98 Resp 18 Wt 185 lb (83.9kg) SpO2 100% LMP 06/18/2023 Physical Exam Vitals reviewed. Constitutional: General: She is not in acute distress. Appearance: Normal appearance. She is not ill-appearing, toxic-appearing or diaphoretic. HENT: Head: Normocephalic and atraumatic. Ears: Skin: General: Skin is warm and dry. Capillary Refill: Capillary refill takes less than 2 seconds. Neurological: Mental Status: She is alert and oriented to person, place, and time. Psychiatric: Mood and Affect: Mood normal. Behavior: Behavior normal. Thought Content: Thought content normal. Judgment: Judgment normal. UNIVERSAL PROTOCOL / SAFETY CHECKLIST Procedure to be Performed: Incision and Drainage right earlobe Sign In: A Moment of CARE was completed. Personnel directly involved with the procedure wore the appropriate PPE (Personal Protective Equipment). No special equipment needed. Patient/Surrogate Stated/Verified: PATIENT VERIFIED(optional for EMERGENT procedures): Patient name, Date of , Relevant allergies, and The intended procedure Time Out Communication: Intended patient and procedure match the source documents. Consent documented and matches the intended procedure. Relevant labs, photos, and/or imaging studies have been reviewed. Correct side/site marked and visible. Medications required for procedure verified. No fire risk assessment and interventions applicable. No implant(s) inserted. Sign Out: SIGN OUT (optional for EMERGENT procedures): No specimen collected. All instruments, equipment, possible retained foreign bodies accounted for. Post-procedure follow-up management communicated and Plan of Care Visit completed when applicable. Patient prepped and draped in sterile fashion. Cleansed patient's cyst with Hibiclens and sterile water. Patted dry with gauze. Injected half a cc of lidocaine 1% to area of concern. Upon removing needle scant amount of of white drainage expelled. Utilized #11 scalpel and made approximately 2 mm horizontal incision. Small amount of thick white sebaceous cyst consistency removed. Cleansed site again with Hibiclens and sterile water. Applied bacitracin and Band-Aid. Patient tolerated well. Patient maintained neuro vascular status pre and post incision and drainage. ASSESSMENT/PLAN: 1. Cutaneous cyst - ICD9: 706.2, ICD10: L72.9 (primary diagnosis) -Your primary care provider has a walk-in clinic Tuesday-Tuesday 8-4 for acute illnesses -Clean site twice per day with soap and water -Apply Band-aid to site for the next 24/48 hours -Watch for signs or symptoms of infection - call if any occur -Fever -Chills -Wound is red, swollen, or draining pus -See red streaks on your skin starting at your wound and moving outward -Wound looks bigger and deeper -Starting oral antibiotic -Educational pamphlet regarding Cysts given - BACITRACIN 500 UNIT/GRAM TOPICAL OINTMENT - CEPHALEXIN 500 MG CAPSULE 2. Contact dermatitis, (more content not included)...[id number] History of Present illness Narrative* Leann Cool, ABRAHAM[employer] - 07/09/2023 3:00 PM EDT Images from the original note were not included. July 09, 2023 Subjective Chief Complaint: Derm Problem (Patient stated that red raised bump behind right earlobe area x 1 week. Lump just got more painful and grew in size in the past few days. /Very warm to the touch. /OTC:Benadryl /Red raised bumps on bilateral legs x 1 weeks. ) HPI: Mahendra Sharpe is a 28 year old female who presents today for raised bump to the back of right earlobe. Patient states that she noticed a lump to the back of her ear lobe for approximately 1 year.States over the course of the past week it has increased in size and is painful. Patient is unsure if it is reddened. Denies any trauma. Has never had her ears pierced. Denies any fever. States the area feels warm to the touch. Patient also states that she has itchy red raised bumps/rash to bilateral legs. States that the rash on her legs seems to be drying up. History reviewed. No pertinent past medical history. History reviewed. No pertinent surgical history. FAMILY HISTORY Problem Relation Age of Onset No Known Problems Mother No Known Problems Father Social History Tobacco Use Smoking status: Never Smokeless tobacco: Never Vaping Use Vaping Use: Never used Substance Use Topics Alcohol use: Yes Comment: rare Drug use: Never ALLERGIES No Known Allergies There is no immunization history on file for this patient. Current Medications: No prescriptions on file. Review of Systems Constitutional: Negative for chills, fever and malaise/fatigue. HENT: Positive for ear pain (earlobe). Negative for ear discharge, hearing loss, sinus pain and sore throat. Lump right earlobe Eyes: Negative for discharge and redness. Gastrointestinal: Negative for diarrhea and vomiting. Skin: Positive for rash. Objective BP 112/76 Pulse 64 Temp 98 Resp 18 Wt 185 lb (83.9kg) SpO2 100% LMP 06/18/2023 Physical Exam Vitals reviewed. Constitutional: General: She is not in acute distress. Appearance: Normal appearance. She is not ill-appearing, toxic-appearing or diaphoretic. HENT: Head: Normocephalic and atraumatic. Ears: Skin: General: Skin is warm and dry. Capillary Refill: Capillary refill takes less than 2 seconds. Neurological: Mental Status: She is alert and oriented to person, place, and time. Psychiatric: Mood and Affect: Mood normal. Behavior: Behavior normal. Thought Content: Thought content normal. Judgment: Judgment normal. UNIVERSAL PROTOCOL / SAFETY CHECKLIST Procedure to be Performed: Incision and Drainage right earlobe Sign In: A Moment of CARE was completed. Personnel directly involved with the procedure wore the appropriate PPE (Personal Protective Equipment). No special equipment needed. Patient/Surrogate Stated/Verified: PATIENT VERIFIED(optional for EMERGENT procedures): Patient name, Date of , Relevant allergies, and The intended procedure Time Out Communication: Intended patient and procedure match the source documents. Consent documented and matches the intended procedure. Relevant labs, photos, and/or imaging studies have been reviewed. Correct side/site marked and visible. Medications required for procedure verified. No fire risk assessment and interventions applicable. No implant(s) inserted. Sign Out: SIGN OUT (optional for EMERGENT procedures): No specimen collected. All instruments, equipment, possible retained foreign bodies accounted for. Post-procedure follow-up management communicated and Plan of Care Visit completed when applicable. Patient prepped and draped in sterile fashion. Cleansed patient's cyst with Hibiclens and sterile water. Patted dry with gauze. Injected half a cc of lidocaine 1% to area of concern. Upon removing needle scant amount of of white drainage expelled. Utilized #11 scalpel and made approximately 2 mm horizontal incision. Small amount of thick white sebaceous cyst consistency removed. Cleansed site again with Hibiclens and sterile water. Applied bacitracin and Band-Aid. Patient tolerated well. Patient maintained neuro vascular status pre and post incision and drainage. ASSESSMENT/PLAN: 1. Cutaneous cyst - ICD9: 706.2, ICD10: L72.9 (primary diagnosis) -Your primary care provider has a walk-in clinic Tuesday-Tuesday 8-4 for acute illnesses -Clean site twice per day with soap and water -Apply Band-aid to site for the next 24/48 hours -Watch for signs or symptoms of infection - call if any occur -Fever -Chills -Wound is red, swollen, or draining pus -See red streaks on your skin starting at your wound and moving outward -Wound looks bigger and deeper -Starting oral antibiotic -Educational pamphlet regarding Cysts given - BACITRACIN 500 UNIT/GRAM TOPICAL OINTMENT - CEPHALEXIN 500 MG CAPSULE 2. Contact dermatitis, unspecified contact dermatitis type, unspecified trigger - ICD9: 692.9, ICD10: L25.9 - Oral Steriod tx -Prednisone burst - Anti itch therapy of Oatmeal baths recommended prn - discussed skin care of rash - follow up if symptoms persist or worsen. - PREDNISONE 20 MG TABLET Leann Cool APRN.CNP The above reflects my independent exam and review of the patient's medical record. I saw and examined the patient myself personally. Parts of the HPI, ROS, exam, impression/plan, and testing results may have been copied from the current or previous clinical notes and remain pertinent to today's visit. Current changes have been made and documented today. Other parts or data may have been deleted if not relevant for today. Plan as outlined above. Patient advised if symptoms do not improve or if symptoms worsen sooner, to contact their primary care physician. Potential red flag symptoms discussed with the patient. Reviewed appropriate action plan to take if red flag symptoms occur. Patient agreeable to treatment plan. Voice recognition software utilized. Minor grammatical and/or spelling errors may exist. Portions of this note have been entered by ancillary staff. I have reviewed and when necessary edited, so that they are an adequate record of my encounter with this patient. [facility] Inst[facility]* Patient Instructions* Leann Cool APRN.CNP - 07/09/2023 3:00 PM EDT -Your primary care provider has a walk-in clinic Tuesday-Tuesday 8-4 for acute illnesses -Clean site twice per day with soap and water -Apply Band-aid to site for the next 24/48 hours -Watch for signs or symptoms of infection - call if any occur -Fever -Chills -Wound is red, swollen, or draining pus -See red streaks on your skin starting at your wound and moving outward -Wound looks bigger and deeper -Starting oral antibiotic -Educational pamphlet regarding Cysts given documented in [facility]Sum[facility]* Diagnosis Cutaneous cyst- Primary Sebaceous cyst Contact dermatitis, unspecified contact dermatitis type, unspecified trigger [facility]* Diagnosis Sebaceous cyst- Primary documented in this encounter [facility] CampusReason for referral (narrative)No reason for referral information availableRockford Yingying Licai Services Work Phone: Summary Purpose Family History No Family History Records FoundNo Family History Records FoundNo Family History Records FoundNo Family History Records FoundNo Family History Records FoundNo Family History Records FoundNo Family History Records Found Advance Directives No Advanced Directives Records FoundNo Advanced Directives Records FoundNo Advanced Directives Records FoundNo Advanced Directives Records FoundNo Advanced Directives Records FoundNo Advanced Directives Records FoundNo Advanced Directives Records Found Additional Source Comments INFORMATION SOURCE (unrecogn ized section and content) DATE CREATED AUTHOR 09/13/2017 [facility] DATE CREATED AUTHOR AUTHOR'S ORGANIZ ATION 04/24/2019 [facility] DATE CREATED AUTHOR AUTHOR'S ORGANIZ ATION 02/01/2021 [facility] DATE CREATED AUTHOR AUTHOR'S ORGANIZ ATION 10/19/2022 [facility] DATE CREATED AUTHOR AUTHOR'S ORGANIZ ATION 07/10/2023 [facility] DATE CREATED AUTHOR AUTHOR'S ORGANIZ ATION 08/25/2024 [facility] Source Comments (unrecognize d section and content) In the event this informatio n is protected by the Federal Confidentiality of Alcohol and Drug Abuse Patient Records regulations: The Federal rules restrict any use of the information to criminally investigate or prosecute any alcohol or drug abuse patient.[facility] CampusIn the event this information is protected by the Federal Confidentiality of Alcohol and Drug Abuse Patient Records regulations: The Federal rules restrict any use of the information to criminally investigate or prosecute any alcohol or drug abuse patient.[facility] Reason for Visit (unrecogniz ed section and content) Reason Comments Derm Problem Patient stated that red raised bump behind right earlobe area x 1 week. Lump just got more painful and grew in size in the past few days. Very warm to the touch. OTC: Benadryl Red raised bumps on bilateral legs x 1 weeks. Reason Comments Ear Problem Lump to the back of right ear with soreness x 9 months. States she was here for this before and the cyst was drained. Inactive Administered Medications - up to 3 most recent administrations Administered Medications (un recognized section and content) Medication Order MAR Action Action Date Dose Rate Site bacitracin 500 unit/gram 1 application topical ointment 1 application , TOPICAL, ONCE, 1 dose, On 07/09/23 at 1530, FOR EXTERNAL USE ONLY APPLY TO: right earlobe Given 07/09/2023 3:26 PM EDT 1 application lidocaine (PF) 10 mg/mL (1 %) 5 mg injection (XYLOCAINE) 5 mg (0.5 mL), INTRADERMAL, ONCE, 1 dose, On 07/09/23 at 1600 Given 07/09/2023 3:39 PM EDT 5 mg Ear, Right Care Teams (unrecognized sec tion and content) Pen Tender Relationship Specialty Start Date End Date Melinda Johnston MD [address] [place] [address] PCP - General Family Medicine 06/06/20 Pen Tender Relationship Specialty Start Date End Date Melinda Johnston MD [address] [place] [address] PCP - General Family Medicine 06/06/20 Team Status: Inactive Member Role Status Dates Dr. Maverick Barr MD Attending Provider Active Start: July 19, 2024 End: July 19, 2024 Team Status: Inactive Member Role Status Dates Dr. Maverick Barr MD Attending Provider Active Start: September 06, 2024 End: September 06, 2024 Goals (unrecognized section and content) Goals may be documented in a n alternate section FOR RECORDS PERTAINING TO PATIENTS WHO ARE OR HAVE BEEN ENROLLED IN A CHEMICAL DEPENDENCY/SUBSTANCEABUSE PROGRAM, SOME INFORMATION MAY BE OMITTED. This clinical summary was aggregated from multiple sources. Caution should be exercised in using it in the provision of clinical care. This summary normalizes information from multiple sources, and as a consequence, information in this document may materially change the coding, format and clinical context of patient data. In addition, data may be omitted in some cases. CLINICAL DECISIONS SHOULD BE BASED ON THE PRIMARY CLINICAL RECORDS. [facility]. provides no warranty or guarantee of the accuracy or completeness of information in this document.
== END 2024-09-06 23:59 | disposition home or self-care (01) ==
LOC: LABSPEC 15:54
PROVIDERS: Referring Provider Surgery Plastic and Reconstructive Surgery; Visit Provider Surgery Plastic and Reconstructive Surgery
DX: L72.0 Epidermal cyst (principal); D22.0 Melanocytic nevi of lip; L85.8 Other specified epidermal thickening
CPT/HCPCS: 88304; 88305